=== PATIENT | male | born 1935 | race Caucasian/White ===

== ENCOUNTER 2017-09-16 02:52 | Inpatient (IN) | payer OTHER, BC ==
[2017-09-16] MEDS ORDERED: METOPROLOL TARTRATE 50 MG TAB TUBE ONE (03:13)
[2017-09-16] MEDS ORDERED: NS 500 ML IV ONE (03:22)
--- NOTE | 2017-09-16 03:47 | EDPHY ---
H & P Stated Complaint: AMS, hematuria, CP, SOB Time Seen by Provider: 09/16/17 02:56 HPI/ROS: HPI The patient presents with chest pain and shortness of breath, brought in by ambulance from [facility] where he has been for the last several days after an admission to [facility] for CVA. At [facility], the patient complained of shortness of breath and was noticed to have a fast heart rate. He was transferred here. He now is feeling better and denies shortness of breath or chest pain without any intervention. He has a most form with him stating that he is comfort measures only. On review of his discharge summary from about 1 week ago, he was diagnosed with an left ICA stroke. REVIEW OF SYSTEMS Constitutional: No fever, no chills. Eyes: No discharge. ENT: No sore throat. Cardiovascular: No chest pain, no palpitations. Respiratory: No cough, no shortness of breath. Gastrointestinal: No abdominal pain, no vomiting. Genitourinary: No hematuria. Musculoskeletal: No back pain. Skin: No rashes. Neurological: No headache. PMHx: Recent left ischemic ICA stroke, atrial fibrillation, type 2 diabetes, aortic stenosis, hematuria from Vazquez Soc Hx: Currently residing at [facility] PHYSICAL General Appearance: Alert, no distress Eyes: Pupils equal and round no pallor or injection ENT, Mouth: Mucous membranes moist Respiratory: There are no retractions, lungs are clear to auscultation Cardiovascular: Tachycardic rate, irregular Gastrointestinal: Abdomen is soft and non-tender, no masses, bowel sounds normal, G-tube in place, Vazquez in place draining clear red urine Neurological: A&O, dysphagia is present with garbling of speech, leftward gaze Skin: Warm and dry, no rashes Musculoskeletal: Neck is supple non tender Extremities: symmetrical, full range of motion Psychiatric: Patient is oriented X 3, there is no agitation Source: Patient, Family, EMS, Old records - Personal History Current Tetanus Diphtheria and Acellular Pertussis (TDAP): Unsure - Medical/Surgical History Hx Asthma: No Hx Chronic Respiratory Disease: No Hx Diabetes: No Hx Cardiac Disease: No Hx Renal Disease: No Hx Cirrhosis: No Hx Alcoholism: No Hx HIV/AIDS: No Hx Splenectomy or Spleen Trauma: No Other PMH: CVA, Aphasia, G-tube, Vazquez - Social History Smoking Status: Unknown if ever smoked Constitutional: Initial Vital Signs Temperature (C) 36.8 C 09/16/17 03:02 Heart Rate 150 H 09/16/17 03:02 Respiratory Rate 40 H 09/16/17 03:02 Blood Pressure 142/88 H 09/16/17 03:02 O2 Sat (%) 94 09/16/17 03:02 O2 Delivery Mode Nasal Cannula O2 (L/minute) 2 Allergies/Adverse Reactions: No Known Allergies Allergy (Unverified 09/16/17 02:59) Home Medications: Medication Instructions Recorded Apixaban [Eliquis] 5 mg TUBE BID 09/16/17 Aspirin [Aspirin 81mg (*)] 81 mg TUBE DAILY 09/16/17 Atorvastatin Calcium [Lipitor 40 80 mg TUBE HS 09/16/17 mg (*)] Insulin Glargine [Lantus 100 26 units SC DAILY 09/16/17 UNITS/ML (*)] Metoprolol Tartrate [Lopressor 50 50 mg TUBE BID 09/16/17 mg (*)] Polyethylene Glycol 3350 [Miralax 17 gm TUBE DAILY PRN 09/16/17 17 gm (*)] Sennosides/Docusate Sodium 1 each TUBE DAILY 09/16/17 [Senna-S Tablet] glyBURIDE [Glyburide] 5 mg TUBE DAILY 09/16/17 metFORMIN HCL [Glucophage 1000 mg] 1,000 mg TUBE BID 09/16/17 Medical Decision Making - Diagnostics EKG Interpretation: EKG: Complete interpretation has been separately recorded in the [facility] archive. Summary impression: Atrial fibrillation with RVR, peaked T-waves Imaging Results: Chest x-ray single view shows poor duration, no obvious infiltrate, interpreted by me, radiology interpretation is pending. Differential Diagnosis: 82-year-old male, recent ischemic left ICA stroke with admission to [facility], aortic stenosis, type 2 diabetes, dysphagia, atrial fibrillation, hypertension who presents from [facility] for chest pain and shortness of breath. On arrival, he is tachycardic, vital signs are otherwise unremarkable. He is feeling a bit better since his symptoms began. Twelve lead reveals AFib with RVR. Patient is comfort measures only according to a recently signed MOST at bedside. I have reviewed his recent admission to [facility]. I have discussed the case with his daughter Candace. We talked on the phone and she says that he would not want any treatments that are invasive including CPR. She says he in the family have decided that quality is more important than longevity in regards to his life. We decided to check basic laboratory testing to see if there any reversible causes of the patient's shortness of breath and chest pain. Unfortunately, we found that the patient was in acute renal failure with a potassium of 7.4 and this is likely have the cause of his symptoms. Creatinine and BUN are also elevated. Patient had acute kidney injury while admitted to [facility], however this resolved as an inpatient. No workup was obtained that I can tell. The patient's other daughters came to the emergency department after I explained the severity of his clinical condition. They are not sure how to proceed. We have discussed that the patient's clinical condition could possibly be reversible if we identified a cause for his acute kidney failure could be treated. However this would likely involve invasive testing and uncomfortable treatments. The family has explained that the patient put in his living will that he would like to "live and in dignity". The family had a direct conversation with the patient and the patient expressed that he wanted to try and fight his current condition. He confirmed with this with me on a separate interview. I will order treatment for hyperkalemia. I have discussed the case hospitalist Dr. Kaplan. She will order additional laboratory testing to evaluate his hyperkalemia. I spoke with Dr. Garcia, the on-call physician for Dr. Perez at [facility]. She will try and reach him later in the day and have him contact the family. Critical Care Time: CRITICAL CARE Critical care time spent by me, Dr. Barlow, exclusively with this patient was 60 minutes, exclusive of PA time and exclusive of procedures. The organ system at risk was cardiac, electrolyte and I gave IV fluids, albuterol, calcium, insulin to prevent worsening of the patients condition. I consulted with multiple family members to discuss goals of patient's care. 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 - Data Points Laboratory Results: Laboratory Results 09/16/17 03:58 09/16/17 03:17 Medications Given: Piperacillin/Tazobactam/Dextrose (Zosyn 3.375 Gm (Premix)) 50 mls @ 100 mls/hr IV Q6HRS CATRACHITO PRN Reason: Protocol Stop: 10/16/17 11:59 Last Admin: 09/16/17 18:23 Dose: 50 mls Insulin Human Lispro (Humalog Lispro) 0 unit SC Q6HRS CATRACHITO PRN Reason: Protocol Stop: 03/15/18 11:59 Last Admin: 09/16/17 18:23 Dose: 4 units Discontinued Medications Albuterol (Proventil Neb) 5 ml IH CONT ONE Stop: 09/16/17 05:16 Last Admin: 09/16/17 05:24 Dose: 5 ml Calcium Gluconate (Calcium Gluconate) 2 gm IVP EDNOW ONE Stop: 09/16/17 05:15 Last Admin: 09/16/17 05:24 Dose: 2 gm Diltiazem HCl (Cardizem 25 Mg/5 Ml Vial) 15 mg IVP EDNOW ONE Stop: 09/16/17 08:15 Last Admin: 09/16/17 09:49 Dose: 10 mg Sodium Chloride (Ns) 500 mls @ 1,000 mls/hr IV EDNOW ONE PRN Reason: Protocol Stop: 09/16/17 03:51 Last Admin: 09/16/17 04:09 Dose: 500 mls Sodium Chloride (Ns) 1,000 mls @ 3,000 mls/hr IV ONCE ONE Stop: 09/16/17 05:33 Last Admin: 09/16/17 05:58 Dose: 1,000 mls Sodium Chloride (1/2 Ns) 1,000 mls @ 75 mls/hr IV CONT CATRACHITO Stop: 03/15/18 08:44 Last Admin: 09/16/17 09:43 Dose: 1,000 mls Diltiazem HCl 125 mg/ Dextrose 125 mls @ 0 mls/hr IV CONT CATRACHITO; As Directed PRN Reason: Protocol Stop: 03/15/18 09:29 Last Admin: 09/16/17 10:02 Dose: 125 mls Insulin Human Regular (Humulin R) 15 unit IVP EDNOW ONE Stop: 09/16/17 05:16 Last Admin: 09/16/17 05:24 Dose: 15 units Insulin Human Regular (Humulin R) 15 unit IVP ONCE ONE Stop: 09/16/17 15:16 Last Admin: 09/16/17 15:47 Dose: 15 units Lidocaine (Uroject Lidocaine 2% Jelly) 20 ml UR ONCE ONE Stop: 09/16/17 08:24 Last Admin: 09/16/17 08:24 Dose: 20 ml Metoprolol Tartrate (Lopressor) 50 mg TUBE EDNOW ONE Stop: 09/16/17 03:14 Last Admin: 09/16/17 03:15 Dose: 50 mg Pantoprazole Sodium (Protonix) 40 mg IVP DAILY CATRACHITO Stop: 03/15/18 09:14 Last Admin: 09/16/17 10:07 Dose: 40 mg Sodium Bicarbonate (Sodium Bicarbonate) 50 meq IV ONCE ONE Stop: 09/16/17 15:31 Last Admin: 09/16/17 15:48 Dose: 50 meq Sodium Polystyrene Sulfonate (Kayexalate) 30 gm PO ONCE ONE Stop: 09/16/17 13:04 Last Admin: 09/16/17 17:33 Dose: 30 gm Departure - Departure Dis[facility] Acute Clinical Impression: Hyperkalemia, Leukocytosis, Atrial fibrillation Chest pain Qualifiers: Chest pain type: other chest pain Qualified Code(s): R07.89 - Other chest pain Acute renal failure Qualifiers: Acute renal failure type: unspecified Qualified Code(s): N17.9 - Acute kidney failure, unspecified CVA (cerebral vascular accident) Qualifiers: CVA mechanism: unspecified Qualified Code(s): I63.9 - Cerebral infarction, unspecified Condition: Critical
[2017-09-16 04:07] LABS: PLATELET COUNT 432 10^3/uL (150-400)
[2017-09-16] MEDS ORDERED: ONDANSETRON 4 MG/2 ML VIAL IVP PRN (05:14)
[2017-09-16] MEDS ORDERED: ACETAMINOPHEN 325 MG TAB PO PRN (05:14)
[2017-09-16] MEDS ORDERED: NS 1,000 ML IV ONE (05:14)
[2017-09-16] MEDS ORDERED: CALCIUM GLUC 10% 1 GM/10 ML VIAL IVP ONE (05:14)
[2017-09-16] MEDS ORDERED: INSULIN REGULAR HUMAN 100 UNIT/ML IVP ONE ×3 (05:15→15:15)
[2017-09-16] MEDS ORDERED: ALBUTEROL 3 ML DEYVIAL IH ONE (05:15)
--- NOTE | 2017-09-16 05:28 | CPEKG ---
Heart Rate: 131 RR Interval: 458 P-R Interval: 196 QRSD Interval: 88 QT Interval: 336 QTC Interval: 496 P [place]: 0 QRS [place]: -70 T Wave [place]: 85 EKG Severity - ABNORMAL ECG - EKG Impression: SINUS TACHYCARDIA WITH IRREGULAR RATE 91-143 EKG Impression: LEFT ANTERIOR FASCICULAR BLOCK EKG Impression: BORDERLINE PROLONGED QT INTERVAL Electronically Signed By: Loree Barlow 16-Sep-2017 07:28:12
[2017-09-16] MEDS ORDERED: LIDOCAINE 2% JELLY 20 ML (UROJECT) ONE (07:45)
[2017-09-16] MEDS ORDERED: DILTIAZEM 125 MG in D5W 125 ML IV ONE (08:14)
[2017-09-16] MEDS ORDERED: DILTIAZEM 25 MG/5 ML VIAL IVP ONE (08:14)
[2017-09-16] MEDS ORDERED: LIDOCAINE 2% JELLY 20 ML (UROJECT) UR ONE (08:23)
[2017-09-16] MEDS ORDERED: D50W 25 GM/50 ML SYR IVP PRN (08:35)
[2017-09-16] MEDS ORDERED: 1/2 NS 1,000 ML IV SCH (08:45)
[2017-09-16] MEDS ORDERED: PANTOPRAZOLE SODIUM 40 MG VIAL IVP SCH (09:15)
[2017-09-16] MEDS ORDERED: DILTIAZEM 125 MG in D5W 125 ML IV SCH (09:30)
--- NOTE | 2017-09-16 10:37 | GHP ---
[f rep st] HISTORY AND PHYSICAL DATE OF ADMISSION: 09/16/2017 PRIMARY CARE PHYSICIAN: Dr. Oc Downs at [facility]. SOURCE: Patient with significant aphasia. He is able to answer a few yes/no questions as far as rev iew of systems. His 3 daughters and son-in-law are all at bedside and provide the majority of the hi story. Case was discussed with ED provider and available EMR was reviewed. CHIEF COMPLAINT: Chest pain and shortness of breath. HISTORY OF PRESENT ILLNESS: A very pleasant, 82-year-old gentleman with unfortunate recent left ICA stroke and right-sided hemiparesis, dysphagia, aphasia who was recently discharged from [facility] in [place] and transferred to [facility]. The patient with a known past medical history si gnificant for atrial fibrillation, on anticoagulation with Eliquis, hypertension, diabetes, uncontrol led aortic stenosis. Family notes of high severity they believe. He was previously quite active bef ore his stroke and appeared to be doing well at [facility] until early this morning when he developed chest pain and shortness of breath. This patient, at the time of my interview, was reporting interm ittent chest pain. He was also pointing to his abdomen that he was uncomfortable but denied any pain . Daughters report that he has been scratching at his PEG site intermittently. He has no reported f ehsan. The patient denies any subjective fevers or chills. No diarrhea. The patient does have a co ugh but is nonproductive. No nasal discharge or sore throat. The patient has a chronic indwelling F oley and that was noted to have hematuria and now frankly bloody. The patient arrived to the emergency department and initial evaluation, discussion with the family, r evealed that patient was more of comfort measures in mind initially. Family, however, wanted to have further evaluation and see what exactly was ongoing in patient's acute changes. A CBC and BMP were significant for leukocytosis and significantly elevated potassium of 7.4 with acute renal insufficien cy. The family desired to have more information regarding what was causing the patient's acute renal failure. However, we are uncertain as to how to proceed as far as treatment. After the patient's 3 daughters arrived and had adequate time for discussion, several hours after patient arrived, they ul timately decided to proceed with treatment. They had a chance to speak with an additional family mem bj who is an RN and again reconsidered how best to proceed with patient's immediate care and goals o f comfort and dying with dignity. Ultimately, daughters elected to proceed with conservative treatme nt, noting adamantly against any kind of invasive procedures and/or aggressive resuscitation. This p recludes any sort of cardiac cath given patient's chest pain. No CPR, no intubation, no minor proced ures. The family did request that repeat laboratory studies be completed following the initial treat ment for patient's hyperkalemia and, again, had further discussions regarding plan to continue treatm ent of patient's additional medical issues. They were finally amenable to go ahead and treat conserv atively all systems and ongoing issues with plans to further discuss with palliative care and follow up on repeat lab testing. REVIEW OF SYSTEMS: GENERAL: Patient denies any fevers chills. SKIN: The patient does have a small wound on his coccyx. No other rashes or sores. ENT: No sore throat. No rhinorrhea. EYES: Unable to understand patient's response. CV: Patient does report intermittent chest pain, shortness of br eath is improved. GI: No nausea or vomiting. The patient does complain of discomfort, but no pain in his abdomen. Some distention. RESPIRATORY: Positive for nonproductive cough and shortness of br eath that has improved. : Positive for hematuria and bleeding around the Vazquez catheter. Also, f rank hematuria in the catheter with occlusion and bladder discomfort. MUSCULOSKELETAL: Patient with right hemiparesis. Unlimited strength in the left side. NEURO: As above. The patient also with p ersistent dysphagia. ALLERGIES: No known drug allergies. HOME MEDICATIONS: As available in EMR. Tubersol, senna, MiraLAX, metoprolol, metformin, Lipitor, La ntus, glyburide, aspirin, apixaban. PAST MEDICAL HISTORY: Significant for recent left ICA CVA with right hemiparesis, aphasia, dysphagia status post PEG tube, and aortic stenosis. Family under the impression that it is of moderate to se karma. Diabetes type 2, hypertension, atrial fibrillation, on chronic anticoagulation with Eliquis an d hematuria. PAST SURGICAL HISTORY: Significant for PEG tube, otherwise negative. FAMILY HISTORY: Mother with history of CVA. 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 He is currently a resident of [facility]. No history of tobacco, drugs, or alcohol. His 3 daughters at [facility] provide great support who are all medical power of employment attorney. CODE STATUS: DNR/DNI. PHYSICAL EXAMINATION: VITAL SIGNS: Upon arrival to the emergency department, blood pressure 142/88, heart rate 150, respiratory rate 40, O2 saturation 94% on 2 L by nasal cannula with a temperature 36 .8. Vitals at the time of interview: Blood pressure 95/58, heart rate 144, respiratory rate 40, O2 saturation 96% on 3 L by nasal cannula with a temperature of 38 degree Celsius. GENERAL: No acute d istress. Chronically ill-appearing, elderly, frail gentleman, lying in bed. He is in a collar. Reena ghters are all at bedside. Patient does appear slightly pale. He does wake to name and is able to s ay a few words, primarily yes, no, otherwise very difficult to understand secondary to aphasia. SKIN : Patient with an ulceration at the coccyx; otherwise, no other apparent rashes or sores. ENT: Muc ous membranes are quite dry. Poor dentition. EYES: Limited exam. There is some crusting on the le ft eye and patient resists me opening either eye. There is no scleral icterus or conjunctival inject ion. Cannot assess patient's pupils secondary to resistance from the patient. NECK: Supple, trache a midline. CV: Distant heart sounds. Tachycardic. Limited exam. Unable to appreciate any murmurs , rubs, or gallops. Distant heart sounds. RESPIRATORY: Diminished bibasilarly. No rhonchi or whee zing. ABDOMEN: Distended. The patient's bladder is significantly enlarged. He does not have any g uarding. No apparent discomfort with exam. He has a PEG tube in place without any surrounding eryth britton at the PEG site. : Vazquez catheter is in place with leaking around the Vazquez catheter with blo od. The catheter itself is occluded with some clotted pal blood. Patient without any scrotal margarito a. EXTREMITIES: Right-sided hemiparesis. NEUROLOGIC: Left side strength 4/5, but patient is not ab le to follow any commands at time of my exam. The patient is oriented to self, but has an aphasia an d does try to answer questions, but difficult to interpret. PSYCH: The patient is not agitated. He does attempt to answer questions at appropriate times. Answers are not always intelligible. Patien t is able to consistently answer most yes or no questions. LABORATORY STUDIES: Initial BMP shows sodium 136, potassium 7.4, chloride 98, CO2 25, anion gap 13, BUN 86, creatinine is 1.7, GFR of 39, glucose 466, calcium 9.8. Troponin is 1.60. Repeated BMP show s sodium 141, potassium is 5.8, chloride 105, CO2 21, anion gap 15, BUN 18, creatinine is 1.9, GFR 34 , glucose 370. Calcium is 10.1. VBG: The pH is 7.41, pCO2 is 34, PO2 is 120, bicarb 21, O2 saturat ion 98, base excess is -2.3. CBC shows WBCs of 21.5 thousand, hemoglobin and hematocrit 14.2 and 41. 3, MCV 86.9, platelet count 432, neutrophil percent 89.7, percent granulocytes 0.7%. EKG shows atrial fibrillation, RVR. Chest x-ray: Image reviewed myself prior to report being available. Appears to have multiple areas of patchiness on the right. Evaluation limited, was single-view and rotated image. ASSESSMENT AND PLAN: An 82-year-old gentleman with multiple medical issues including recent left int ernal carotid artery (ICA) stroke with right hemiparesis, aortic stenosis, uncontrolled diabetes type 2, atrial fibrillation, uncontrolled hypertension, who presents with complaints of chest pain, short ness of breath. 1. Hyperkalemia. Initially critical at 7.4. After some time of discussion family elected to procee d with conservative management and treatment for his multiple medical issues. Repeat basic metabolic panel does show that potassium has declined down to 5.8, status post insulin, IV fluids and patient did receive calcium gluconate. Will plan to repeat basic metabolic panel. Continue with IV fluid hy dration. 2. Acute kidney injury. Baseline creatinine unavailable at this time. Repeated creatinine up sligh tly to 1.9. Suspect there is a decreased perfusion in the setting of persistent atrial fibrillation with rapid ventricular response and likely prerenal in nature. Patient did receive some IV fluids an d repeat basic metabolic panel showed slight worsening of renal function but the patient's atrial fib rillation had remained untreated. Urine studies have been obtained. The patient also with evidence of a bladder outlet obstruction at this time, which could be contributing in addition. Attempts are being made currently for the patient to have a 3-way catheter or replacement of Vazquez catheter and dr chadwick of the bladder if possible. 3. Atrial fibrillation with rapid ventricular response. The patient did receive a dose of metoprolo l per PEG earlier in the emergency department, consistent with conservative management. Did discuss with the family aggressive rate control to improve the other issues ongoing that atrial fibrillation could be contributing to including his acute renal failure and subsequently hyperkalemia. They are a menable to proceed at this point with IV treatment. We will start with a bolus of Cardizem, followed by a drip. 4. Elevated troponin. Suspect this is likely demand in the setting of atrial fibrillation with rapi d ventricular response. The patient does have some complaints of chest pain. It is unclear what gideon luation cardiac-thakkar patient has had previously. He was otherwise a healthy rancher without any repo rt of angina. Further discussion as far as evaluation discussed with the family and they are adamant that they would not want any sort of intervention, including cardiac cath, and so there is no need f or cardiology consultation at this point unless family changes their decision on intervention. We wi ll continue to trend troponins and monitor on telemetry. 5. Pal hematuria. Patient does have a history of some hematuria, but currently he has a significa nt amount of gross pal hematuria noted in his catheter that is now occluded and subsequent drainage around his Vazquez catheter. The patient is on Eliquis, which we will hold at this time. If possible , we will have nursing staff place a 3-way catheter and place patient on continuous irrigation. Agai n, as patient does not desire any further intervention we will hold off on urology consultation for n ow. 6. Diabetes type 2, uncontrolled. The patient will be placed on the low-dose insulin sliding scale. He did receive a bolus dosing for treatment of his hyperkalemia. We will plan to hold off on tube feeds pending re-evaluation by the day team for now. Will place patient on q.6 hour Accu-Cheks and h ypoglycemia protocol. 7. History of aortic stenosis, severity unknown, but impression of the family is quite moderate to s willard. We will try to get records from [facility] from his recent hospital stay including e chocardiogram. We will monitor fluid status closely. 8. Benign essential hypertension. Blood pressures at this time are adequate. We will monitor close ly with the initiation of Cardizem drip. 9. Dysphagia. Patient with a PEG tube in place. 10. Possible infiltrates on chest x-ray with increased risk for aspiration. The patient also has a white count, possibly intraabdominal versus respiratory. The patient does report a cough. Will star t patient on Zosyn, given recent hospitalization for healthcare acquired coverage. 11. Prolonged QT. We will monitor the patient on telemetry and reassess after patient's rate has be en controlled. 12. Fluid, electrolyte, nutrition. Patient will receive half-normal saline at 75. He is status pos t 1.5 L IV fluid in the emergency department. Electrolytes will be monitored, replaced if needed or treated for hyperkalemia as above. Nothing by mouth. Patient will hold off on tube feeds for now. 13. Decubitus ulcer present on admission. Wound Care will be consulted. Ulceration located at the coccyx, sacrum. Will see if possible order specialty bed. 14. Prophylaxis. Holding Eliquis. Patient with active bleeding. Hemoglobin and hematocrit are sta ble. Patient with history of dysphagia, does not have a gastrointestinal prophylaxis on his home med ication list. Will order Protonix IV for now. Aspiration precautions. Fall precautions. CODE STATUS: Do Not Resuscitate, Do Not Intubate with limited treatment to include only medical, no interventions. DISPOSITION: The patient will be admitted to inpatient status. At this time family is desiring to nicola mccurdy with full medical treatment for his multiple medical issues and I did discuss this with the lyle reich that given his multiple medical issues, his chronic illnesses, that this is likely to be a very slow recovery, if at all. Palliative Care has been consulted to assist with further discussions with the family. They would like at least 24 hours of treatment before reassessment of plans of care. /[id number]/MODL
[2017-09-16] MEDS: PIPERACILLIN/TAZO 3.375 GM/DEX 50 ML IV SCH ×2 (11:44→18:23)
[2017-09-16] MEDS: INSULIN LISPRO 100 UNIT/ML SC SCH ×2 (11:52→18:23)
[2017-09-16] MEDS ORDERED: POLYETHYLENE GLYCOL 3350 17 GM PKT TUBE PRN (12:08)
[2017-09-16] MEDS ORDERED: SODIUM BICARBONATE 50 MEQ/50 ML SYR IVP ONE ×2 (13:02→15:15)
[2017-09-16] MEDS ORDERED: SODIUM POLY SULF 15 GM/60 ML BOTTLE PO ONE (13:03)
--- NOTE | 2017-09-16 14:17 | PDPCPN ---
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 On admission with KATERINE and hyperkalemia. ALso tachycardic on admission with a rib RVR started on cardizem. Hyperkalemia improved since admission with medical management. Ongoing work up for cause of KATERINE. Also with hematuria on CBI. MOST form on admission with comfort care only. Palliative care consulted for complex medical decision making. Met with 3 daughters and granddaughter at the bedside this afternoon. Cristian was sleeping, but per family was awake and alert a little while before the meeting. Per family Cristian was very active and engaged prior to his stroke. They always thought he wanted to "go out like his father" who had a heart attack but after his stroke he seemed to acknowledge and accept that he would have continued physical limitations. They have started planning for more long term care phlebotomist plans including [facility] after rehab. They are hoping his quality of life can improve to using a wheelchair and not being dependent on PEG tube for nutrition. At current baseline, it is not consistent with a good quality of life. Discussed the medical interventions being managed medically for now. They reiterated they would not want invasive medical management like surgery, invasive tests, or CPR. They are unsure how to proceed as they worry that Cristian will not improve in functional status and would just be prolonging a poor quality of life. They are unsure how the MOST form was filled out with comfort as their wishes have always been for some medical interventions as long as a good return to quality of life was the driven force for decisions. Assessment: Physical: - Pain: appears comfortable -tylenol PRN - Dysphagia: - speech therapy - aspiration precautions - weakness: - Pt/Ot as able Emotional/psychological: acute encephalopathy - maintain normal routines Advanced Care Planning: Is patient decisional?: no not at this time Code Status: DNR/DNI- selective MD POA: 3 daughters are MDPOA. Plan: Continue simple medical interventions. No invasive tests or procedures. Family is hopeful Cristian can return to rehab and improve to living in [place]. They would not want life prolongation without quality of life. Subjective: sleeping, mumbles words to name Objective: Social History: 2 months ago. 4 daughters, 3 alive and local. 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 Enjoys working on his garden and riding horses. Medication list reviewed ROS: General: fatigue, weakness, weight loss ENT: dysphagia Resp: negative GI: poor appetite : hematuria MS: negative Skin: sacral ulcer Neuro: right sided weakness Psych: confusion Functional assessment: PPS: 30% Functional status: dependent on ADLs, IADLs Vital Signs Temp Pulse Resp BP Pulse Ox 37.2 C 92 30 H 124/73 H 95 09/16/17 12:00 09/16/17 13:57 09/16/17 13:57 09/16/17 13:57 09/16/17 13:57 Laboratory Results 09/16/17 11:30 09/15/17 09/16/17 09/17/17 05:59 05:59 05:59 Output Total 450 Balance -450 Physical Exam - Physical Exam General Appearance: no apparent distress, other (sleeping, slightly arousable to voice) Respiratory: No respiratory distress, No accessory muscle use Male Genitalia: other (red blood in kaufman bag) Skin: normal color, warm/dry Extremities: No pedal edema Neuro/Psych: other (awakens to name, some confusion) ICD10 Worksheet Patient Problems: Problems Problem Status Onset Acute renal failure Acute CVA (cerebral vascular accident) Acute Chest pain Acute Hyperkalemia Acute Palliative care encounter Acute - ICD10 Problem Qualifiers (1) Palliative care encounter
--- NOTE | 2017-09-16 14:17 | ASMTCMCOM ---
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 Pt had a stroke approximately 3 weeks ago and was treated at [facility]. Pt d/c to [facility] rehab and was admitted to [facility] from his [facility] rehab stay. Please see palliative note for details on consult. Faxed referrals and updates to [facility]. Case Management d/c poc: return to [facility] pending reacceptance. Case Management to follow. Date Signed: 09/16/2017 02:17 PM Electronically Signed By:Rachele Jennings RN
[2017-09-16] MEDS ORDERED: NA BICARBONATE 50 MEQ/50 ML VIAL IV ONE (15:30)
--- NOTE | 2017-09-16 16:10 | WOCRNPDOC ---
WOCRN Advanced Assessment Note - Skin Integrity Problem, Advanced Assess Coccyx Dressing Type: Allevyn Life Dressing Description: Clean/Dry, Intact Integumentary Issue Intervention: Dressing Removed Belle Wound Tissue: Blanching, Erythema, Non-blanching Wound Bed Constitution: Granulation Tissue Wound Edges: Attached Site Measurement - Head-to-Toe Length X Width X Depth (cm): 3x0.8x0.1 Pressure Injury Stage: Stage 3 Pressure Injury Present on Admit: Yes Skin Integrity Problem Comment: Two wounds seperated by a small bridge of skin along gluteal cleft. Both full thickness. Belle wound skin with erythema and satellite lesions. Removed dressing and will treat with antifungal barrier cream for a few days to see if there is improvement. Minimize layers. No briefs. P500 mattress. Wound care will round again thursday.
--- NOTE | 2017-09-16 16:31 | ECHO ---
[email or web address] [address] [address] Main: [phone] Fax: Transthoracic Echocardiogram Name: SARAH MOORE MR#: [id number] Study Date: 09/16/2017 Study Time: 01:58 PM Date of : 1935 Age: 82 year(s) Height: 182.9 cm (72 in.) Weight: 80.74 kg (178 lb.) BSA: 2.03 m2 Gender: Male Examination: Echo Indication: Aortic stenosis Image Quality: Contrast: Requested by: Alycia Mcneill BP: 124 mmHg/73 mmHg Heart Rate: Rhythm: Indication: Aortic stenosis Procedure Staff Signal Integrity Engineer: Claudia Terrazas Reading Physician: Clifford Skaggs Requesting Provider: Conclusions: Normal size left ventricle. Mild to moderate LVH. The ejection fraction is estimated to be 70-75 %. Mild mitral valve regurgitation is present. Severe calcification of the posterior mitral leaflet.. Moderate aortic cusp calcification is present. Mild aortic valve regurgitation is present. Moderate calcific aortic valve stenosis. AV max PG is 47mmHG. AV mean PG is 26mmHG.. No old studies for comparison. Measurements: Chambers Valvular Assessment AV/MV Valvular Assessment TV/PV Normal Normal Normal Name Value Range Name Value Range Name Value Range Ao Vicki (MM): 3.3 cm (2.2 cm-3.7 AV meanP mmHg ( - ) cm) TAIWO (VTI): 1.4 cm ( - ) IVSd (2D): 1.1 cm (0.6 cm-1.1 AR (PHT): 447 ms ( - ) cm) MV E Vmax: 1.15 m/s ( - ) LVDd (2D): 3.8 cm (4.2 cm-5.9 MV A Vmax: 0.90 m/s ( - ) cm) MV E/A: 1.28 ( - ) LVDs (2D): 2.4 cm (2.1 cm-4 cm) LVPWd (2D): 1.1 cm (0.6 cm-1 cm) LVOTd 2.1 cm 2.1 cm mm LVEF (2D): 68 (>=54 %) EF Range: 70-75 % Continued Measurements: Patient: SARAH MOORE Study Date: 09/16/2017 Page 1 of 2 01:58 PM Chambers Valvular Assessment AV/MV Name Value Name Value LADs: 3.2 cm MV DecTime: 426 m/s LADs Lon.4 cm MV E' Septal: 0.07 m/s LA Area: 22.6 cm2 MV E/E' Septal: 17.30 MV E/E' Lateral: 15.30 AR Vmax: 3.74 cm/s Findings: Left Ventricle: Normal size left ventricle. Mild to moderate LVH. Global hypercontractility of the left ventricle. The ejection fraction is estimated to be 70-75 %. No regional wall motion abnormality. Normal diastolic LV function. Right Ventricle: Normal size right ventricle. Left Atrium: The left atrium is normal in size. Right Atrium: The right atrium is normal in size. Mitral Valve: Mild mitral valve regurgitation is present. Severe calcification of the posterior mitral leaflet.. Aortic Valve: Moderate aortic cusp calcification is present. Mild aortic valve regurgitation is present. Moderate calcific aortic valve stenosis. AV max PG is 47mmHG. AV mean PG is 26mmHG.. Tricuspid Valve: The tricuspid valve is normal in appearance and function. Pulmonic Valve: Pulmonary valve not well visualized. Aorta: The aorta is normal. Pericardium: No pericardial effusion. (No Signature Object) Patient: SARAH MOORE Study Date: 09/16/2017 Page 2 of 2 01:58 PM [id number]
--- NOTE | 2017-09-16 17:18 | PDMN ---
Medical Necessity Medical necessity: est los>2mn for hyperkalemia, KATERINE, AFIB W/RVR, elevated troponin, pal hematuria, prolonged QT, uncontrolled DM, leukocytosis, respiratory vs abdominal source; admit for full medical treatment , including IV abx, tele, IVF, and palliative consult, then reassess plan of care; hx recent CVA w/R hemiparesis, aphasia, dysphagia w/PEG; per order and H&P 09/16/17
--- NOTE | 2017-09-16 18:24 | GCON ---
[f rep st] CONSULTATION DATE OF CONSULTATION: 09/16/2017 REFERRING PHYSICIAN: Jane Kaplan MD REASON FOR CONSULTATION: I have been asked to see this gentleman because of hematuria. 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 He was discharged from [facility] in [place] and transferred to [facility]. He had been on Eliquis. A catheter was place d because of urinary retention. He was admitted for problems associated with the stroke and anticoag ulation. He has had a catheter placed and he has been on CBI for gross hematuria. They have stopped his Eliqu is. I visit with him today after reviewing his record and chart. ALLERGIES: By history, he has no known drug allergies. MEDICATIONS: As noted in the EMR. PAST MEDICAL HISTORY: Recent cerebrovascular accident, type 2 diabetes, hypertension, atrial fibrill ation, chronic anticoagulation with Eliquis, and hematuria. PAST SURGICAL HISTORY: Has been a PEG tube. FAMILY HISTORY: Mother with a cerebrovascular accident. 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 Nonsmoker, nondrinker. PHYSICAL EXAMINATION: GENERAL: On exam, the patient is lying in bed, having an IV placed. Catheter is draining and there is no significant blood in the catheter. He is appears to be in no acute dist ress as far as pain or discomfort. EXTREMITIES: He does have lower peripheral extremity edema. HEA D: Covered with a cloth to protect him from light, presumably. NEUROPSYCHIATRIC: Communication has been purely with his family. GENITOURINARY: At the present time, he has had the CBI running and th ey have evacuated clots. IMAGING: They did do an ultrasound of his bladder today, and the bladder revealed that he had the ca theter balloon in place and he had multiple rectally small to moderate-sized clots in the bladder. T he bladder was emptying well and draining quite easily. On the ultrasound, it appeared that he also had some mild hydronephrosis, right greater than left, that could be from chronic long-term obstructi on. There were no stones or tumors noted in the kidneys or ureters. ASSESSMENT AND PLAN: At the present time, my impression is this patient is a high-risk patient for a ny interventional procedures. I would recommend Vazquez catheter continuation. He will need to resume his Eliquis, and I have outlin ed to the family that he could quite easily have recurrent bleeding. If necessary, he may need at so me point to undergo general anesthesia for evacuation of clots, but at the present time and in his pr esent condition, would avoid that. I have tried to answer their questions to the best of my ability. I will follow him on the periphery . I was asked to see this patient by Dr. Kaplan. Review of the x-rays and time spent at bedside and review of the medical records was approximately 40 minutes in duration total. /[id number]/MODL
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
[2017-09-16] MEDS: NS 1,000 ML IV SCH (23:58)
[2017-09-17] MEDS: PIPERACILLIN/TAZO 3.375 GM/DEX 50 ML IV SCH ×4 (00:15→18:16)
[2017-09-17] MEDS: METOPROLOL TARTRATE 50 MG TAB TUBE SCH ×3 (01:53→20:36)
[2017-09-17] MEDS: ATORVASTATIN CALCIUM 40 MG TAB TUBE SCH ×2 (01:53→20:35)
[2017-09-17] MEDS: INSULIN LISPRO 100 UNIT/ML SC SCH ×4 (02:36→18:16)
[2017-09-17 04:35] LABS: PLATELET COUNT 329 10^3/uL (150-400)
[2017-09-17] MEDS ORDERED: SENNOSIDES/DOCUSATE SODIUM TAB PO SCH (09:00)
[2017-09-17] MEDS ORDERED: TAMSULOSIN HCL 0.4 MG CAP PO SCH (09:00)
[2017-09-17] MEDS: SENNOSIDES 17.6 MG/10 ML UDL TUBE SCH (09:02)
[2017-09-17] MEDS: ASPIRIN 81 MG CHEWABLE TAB TUBE SCH (09:20)
[2017-09-17] MEDS: NS 1,000 ML IV SCH (09:20)
[2017-09-17] MEDS: ACETAMINOPHEN 650 MG/20.3 ML UDCUP TUBE PRN ×2 (09:21→20:35)
[2017-09-17] MEDS: glyBURIDE 5 MG TAB TUBE SCH (09:21)
[2017-09-17] MEDS: INSULIN GLARGINE 100 UNITS/ML SYRINGE SC SCH (11:31)
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
[2017-09-18] MEDS: PIPERACILLIN/TAZO 3.375 GM/DEX 50 ML IV SCH ×3 (01:43→11:59)
[2017-09-18] MEDS: INSULIN LISPRO 100 UNIT/ML SC SCH ×4 (02:48→17:57)
[2017-09-18 04:43] LABS: PLATELET COUNT 292 10^3/uL (150-400)
[2017-09-18] MEDS: ACETAMINOPHEN 650 MG/20.3 ML UDCUP TUBE PRN ×2 (08:21→20:56)
[2017-09-18] MEDS: METOPROLOL TARTRATE 50 MG TAB TUBE SCH ×2 (08:24→20:56)
[2017-09-18] MEDS: ASPIRIN 81 MG CHEWABLE TAB TUBE SCH (08:27)
[2017-09-18] MEDS: glyBURIDE 5 MG TAB TUBE SCH (08:29)
[2017-09-18] MEDS: INSULIN GLARGINE 100 UNITS/ML SYRINGE SC SCH (08:32)
[2017-09-18] MEDS: SENNOSIDES 17.6 MG/10 ML UDL TUBE SCH (09:26)
--- NOTE | 2017-09-18 10:34 | WOCRNPDOC ---
WOCRN Advanced Assessment Note - Skin Integrity Problem, Advanced Assess Coccyx Dressing Type: Open to Air Exudate Amount: None Exudate Characteristic(s): None Integumentary Issue Intervention: Barrier Cream Applied (Calazime cream) Belle Wound Tissue: Blanching, Erythema, Denuded Belle Wound Swelling: Mild Wound Bed Color: Red Wound Bed Constitution: Red/Pamplico - Non Granular Tissue Pressure Injury Stage: Stage 3 Skin Integrity Problem Comment: Two, discrete full-thickness pressure injuries noted directly over coccyx, by a narrow patch of skin. Belle-wound skin blanching, but continues to be raw and denuded r/t frequent loose stools. Order changed to Calazime to provide a thicker barrier against stool. Patient repositioned on his R side. director of retail merchandising Kelli larose. Occiput Pressure Injury Dressing Type: Open to Air Exudate Amount: Scant Exudate Color: Reddish/Yellow Exudate Characteristic(s): Serosanguinous Integumentary Issue Intervention: Dressing Applied Belle Wound Tissue: Intact Belle Wound Swelling: None Wound Bed Color: Brown Wound Bed Constitution: Scab Site Measurement - Head-to-Toe Length X Width X Depth (cm): 0.5cmx0.5cmx scab Pressure Injury Stage: Unstageable Pressure Injury Present on Admit: No Skin Integrity Problem Comment: Small, circular scab noted to patient's occiput , directly under his neck brace. Unable to ascertain depth at this time, so it is presently an unstageable pressure injury. Belle-wound skin is intact and blanching. Protective foam dressing applied to help alleviate pressure, and neck brace re-fastened. Wound care will continue to monitor, rounding again on Friday 09/22.
[2017-09-18] MEDS ORDERED: LOPERAMIDE HCL 1 MG/5 ML UDL TUBE PRN (15:00)
[2017-09-18] MEDS ORDERED: LOPERAMIDE HCL 1 MG/5 ML UDL TUBE ONE (15:00)
--- NOTE | 2017-09-18 15:34 | PDPCPN ---
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 On admission with KATERINE and hyperkalemia. ALso tachycardic on admission with a rib RVR started on cardizem. Hyperkalemia improved since admission with medical management. Ongoing work up for cause of KATERINE. Also with hematuria on CBI. MOST form on admission with comfort care only. Palliative care consulted for complex medical decision making. Cristian seen today with friends and 1 daughter at the bedside. More awake and alert today attempting communication. Is able to say some things and denies any pain. He states he wants to get back to rehab to work on his speech and mobility. Assessment: Physical: - Pain: appears comfortable -tylenol PRN - Dysphagia: - speech therapy - aspiration precautions - weakness: - Pt/Ot as able Emotional/psychological: acute encephalopathy - maintain normal routines Advanced Care Planning: Is patient decisional?: yes with help Code Status: DNR/DNI- selective MD POA: 3 daughters are MDPOA. Plan: Return to rehab when medically stable. Subjective: no pain Objective: Vital Signs Temp Pulse Resp BP Pulse Ox 36.7 C 85 12 109/60 99 09/18/17 15:15 09/18/17 15:15 09/18/17 15:15 09/18/17 15:15 09/18/17 15:15 Laboratory Results 09/18/17 03:09 09/18/17 03:09 09/17/17 09/18/17 09/19/17 05:59 05:59 05:59 Intake Total 1200 3476 50 Output Total 3300 1390 Balance -2100 2086 50 Physical Exam - Physical Exam General Appearance: alert, no apparent distress Respiratory: No respiratory distress, No accessory muscle use Skin: normal color, warm/dry Extremities: No pedal edema Neuro/Psych: alert, other (some aphasia) ICD10 Worksheet Patient Problems: Problems Problem Status Onset Acute renal failure Acute Atrial fibrillation Acute CVA (cerebral vascular accident) Acute Chest pain Acute Hyperkalemia Acute Leukocytosis Acute Palliative care encounter Acute - ICD10 Problem Qualifiers (1) Palliative care encounter
[2017-09-18] MEDS: ERTAPENEM 1 GM VIAL IVP SCH (17:43)
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
[2017-09-18] MEDS: ATORVASTATIN CALCIUM 40 MG TAB TUBE SCH (20:55)
[2017-09-19] MEDS: INSULIN LISPRO 100 UNIT/ML SC SCH ×4 (01:11→18:51)
[2017-09-19 04:11] LABS: PLATELET COUNT 291 10^3/uL (150-400)
[2017-09-19] MEDS ORDERED: D5W 1,000 ML IV SCH (08:45)
[2017-09-19] MEDS: METOPROLOL TARTRATE 50 MG TAB TUBE SCH ×2 (08:54→20:39)
[2017-09-19] MEDS: ASPIRIN 81 MG CHEWABLE TAB TUBE SCH (08:54)
[2017-09-19] MEDS: SENNOSIDES 17.6 MG/10 ML UDL TUBE SCH (08:55)
[2017-09-19] MEDS: glyBURIDE 5 MG TAB TUBE SCH (08:55)
[2017-09-19] MEDS: INSULIN GLARGINE 100 UNITS/ML SYRINGE SC SCH (09:31)
--- NOTE | 2017-09-19 15:31 | ASMTCMCOM ---
CM Note CM Note Notes: Reviewed chart regarding discharge plan, pt's progress. Per MD notes, pt's anticipated discharge is uncertain at this time. Per MD and Palliative Care progress notes, pt will liklel return to [facility] for rehab when stable. CM will cont to follow. Current Discharge Plan: [facility] Date Signed: 09/19/2017 03:30 PM Electronically Signed By:Joana Cain RN
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
[2017-09-19] MEDS: ERTAPENEM 1 GM VIAL IVP SCH (18:11)
[2017-09-19] MEDS: APIXABAN 5 MG TAB TUBE SCH (20:35)
[2017-09-19] MEDS: ATORVASTATIN CALCIUM 40 MG TAB TUBE SCH (20:36)
[2017-09-20] MEDS: INSULIN LISPRO 100 UNIT/ML SC SCH ×4 (00:23→18:18)
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
[2017-09-20 04:20] LABS: PLATELET COUNT 266 10^3/uL (150-400)
[2017-09-20] MEDS: SENNOSIDES 17.6 MG/10 ML UDL TUBE SCH (08:50)
[2017-09-20] MEDS: glyBURIDE 5 MG TAB TUBE SCH (08:50)
[2017-09-20] MEDS: INSULIN GLARGINE 100 UNITS/ML SYRINGE SC SCH (08:50)
[2017-09-20] MEDS: ASPIRIN 81 MG CHEWABLE TAB TUBE SCH (08:50)
[2017-09-20] MEDS: METOPROLOL TARTRATE 50 MG TAB TUBE SCH ×2 (08:50→20:27)
[2017-09-20] MEDS: APIXABAN 5 MG TAB TUBE SCH ×2 (08:50→20:30)
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
[2017-09-20] MEDS: ATORVASTATIN CALCIUM 40 MG TAB TUBE SCH (20:30)
[2017-09-21] MEDS: INSULIN LISPRO 100 UNIT/ML SC SCH ×4 (00:13→19:24)
[2017-09-21 04:31] LABS: PLATELET COUNT 266 10^3/uL (150-400)
--- NOTE | 2017-09-21 09:18 | ASMTCMCOM ---
CM Note CM Note Notes: 09/21/2017 Case Management Note Faxed updates to [facility].] Case Management d/c poc: return to [facility] when medically stable. Case Management to follow. Date Signed: 09/21/2017 09:18 AM Electronically Signed By:Rachele Jennings RN
[2017-09-21] MEDS: glyBURIDE 5 MG TAB TUBE SCH (10:27)
[2017-09-21] MEDS: ASPIRIN 81 MG CHEWABLE TAB TUBE SCH (10:27)
[2017-09-21] MEDS: APIXABAN 5 MG TAB TUBE SCH ×2 (10:27→21:10)
[2017-09-21] MEDS: SENNOSIDES 17.6 MG/10 ML UDL TUBE SCH (10:28)
[2017-09-21] MEDS: METOPROLOL TARTRATE 50 MG TAB TUBE SCH ×2 (10:28→21:12)
[2017-09-21] MEDS: INSULIN GLARGINE 100 UNITS/ML SYRINGE SC SCH (10:28)
[2017-09-21] MEDS: levOFLOXACIN ORAL 25 MG/ML 100 ML BOTTLE TUBE SCH (11:04)
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
[2017-09-21] MEDS: ATORVASTATIN CALCIUM 40 MG TAB TUBE SCH (21:10)
[2017-09-22] MEDS: INSULIN LISPRO 100 UNIT/ML SC SCH ×5 (00:10→23:59)
[2017-09-22] MEDS: APIXABAN 5 MG TAB TUBE SCH ×2 (08:58→21:44)
[2017-09-22] MEDS: SENNOSIDES 17.6 MG/10 ML UDL TUBE SCH (08:58)
[2017-09-22] MEDS: INSULIN GLARGINE 100 UNITS/ML SYRINGE SC SCH (08:58)
[2017-09-22] MEDS: ASPIRIN 81 MG CHEWABLE TAB TUBE SCH (08:58)
[2017-09-22] MEDS: glyBURIDE 5 MG TAB TUBE SCH (08:58)
[2017-09-22] MEDS: METOPROLOL TARTRATE 50 MG TAB TUBE SCH ×2 (08:58→21:44)
[2017-09-22] MEDS: levOFLOXACIN ORAL 25 MG/ML 100 ML BOTTLE TUBE SCH (09:10)
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
[2017-09-22] MEDS ORDERED: TAMSULOSIN HCL 0.4 MG CAP PO SCH (12:30)
--- NOTE | 2017-09-22 12:46 | WOCRNPDOC ---
WOCRN Advanced Assessment Note - Skin Integrity Problem, Advanced Assess Coccyx Dressing Type: Allevyn Life Dressing Description: Soiled Exudate Amount: Scant Exudate Characteristic(s): Serosanguinous Integumentary Issue Intervention: Dressing Removed, Barrier Cream Applied Belle Wound Tissue: Blanching, Erythema, Denuded Belle Wound Swelling: Mild Wound Bed Color: Red Wound Bed Constitution: Red/Lititz - Non Granular Tissue Pressure Injury Stage: Stage 3 (x2) Pressure Injury Present on Admit: Yes Skin Integrity Problem Comment: Two, discrete pressure injuries adjacent to each other along patient's coccyx, both full-thickness w/ no apparent necrosis. Nursing placed a dressing over this site instead of ordered Calazime, and periwound skin is raw and denuded. Because patient is incontinent of stool, and has some existing moisture-related dermatitis, dressing does not work at this time. Applied Calazime over the wounds, and to surrounding skin. Wound RN will re-evaluate on to determine if a dressing can be applied at that time. Occiput Pressure Injury Dressing Type: Allevyn Life Dressing Description: Clean/Dry, Intact Exudate Amount: None Exudate Characteristic(s): None Integumentary Issue Intervention: Visualized Under Dressing Belle Wound Tissue: Blanching, Intact Belle Wound Swelling: None Wound Bed Color: Red Wound Bed Constitution: Red/Lititz - Non Granular Tissue Pressure Injury Stage: Unstageable Pressure Injury Present on Admit: No (r/t cervical collar) Skin Integrity Problem Comment: Wound on patient's occiput, previously an unstageable pressure injury, now has appearance consistent w/ stage 2 pressure injury. Previously intact, eschar scab has sloughed off, and there is a partial- thickness wound underneath. Continue w/ hydrogel and Allevyn to protect site and relieve pressure. fast food attendant Shana present and assisting.
--- NOTE | 2017-09-22 17:34 | SOAPPROG ---
SOAP Progress Note Assessment/Plan: Assessment: retention and hematuria. discussed with hospitalist and consider removal of kaufman since no clots noted on sono. if pt is anticoagulated and at increased risk of bleeding with catheter Plan: options of catheter or remove discussed 09/22/17 17:31 Subjective: discussion about kaufman catheter Objective: Vital Signs Temp Pulse Resp BP Pulse Ox 35.8 C L 71 20 136/73 H 93 09/22/17 16:02 09/22/17 16:02 09/22/17 16:02 09/22/17 16:02 09/22/17 16:02 Laboratory Results 09/21/17 03:16 09/22/17 03:12 09/21/17 09/22/17 09/23/17 05:59 05:59 05:59 Intake Total 3797 1000 Output Total 2350 3150 700 Balance 1447 -2150 -700 sonogram noted no clots in bladder this AM and I have reviewed this study Physical Exam - Physical Exam General Appearance: other (post CVA) ICD10 Worksheet Patient Problems: Problems Problem Status Onset Acute renal failure Acute Atrial fibrillation Acute CVA (cerebral vascular accident) Acute Chest pain Acute Hyperkalemia Acute Leukocytosis Acute Palliative care encounter Acute
[2017-09-22] MEDS: ATORVASTATIN CALCIUM 40 MG TAB TUBE SCH (21:44)
[2017-09-22] MEDS: TERAZOSIN HCL 1 MG CAP TUBE SCH (21:57)
[2017-09-23] MEDS: INSULIN LISPRO 100 UNIT/ML SC SCH ×3 (06:18→17:57)
[2017-09-23] MEDS: ASPIRIN 81 MG CHEWABLE TAB TUBE SCH (08:51)
[2017-09-23] MEDS: glyBURIDE 5 MG TAB TUBE SCH (08:51)
[2017-09-23] MEDS: METOPROLOL TARTRATE 50 MG TAB TUBE SCH ×2 (08:51→20:35)
[2017-09-23] MEDS: APIXABAN 5 MG TAB TUBE SCH ×2 (08:51→20:36)
[2017-09-23] MEDS: INSULIN GLARGINE 100 UNITS/ML SYRINGE SC SCH (08:52)
[2017-09-23] MEDS: SENNOSIDES 17.6 MG/10 ML UDL TUBE SCH (08:52)
[2017-09-23] MEDS: levOFLOXACIN ORAL 25 MG/ML 100 ML BOTTLE TUBE SCH (08:52)
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
[2017-09-23] MEDS: TERAZOSIN HCL 1 MG CAP TUBE SCH (20:36)
[2017-09-23] MEDS: ATORVASTATIN CALCIUM 40 MG TAB TUBE SCH (20:36)
[2017-09-24] MEDS: INSULIN LISPRO 100 UNIT/ML SC SCH ×3 (00:26→12:46)
[2017-09-24 08:35] VITALS: RESP 16
[2017-09-24] MEDS: METOPROLOL TARTRATE 50 MG TAB TUBE SCH (09:59)
[2017-09-24] MEDS: SENNOSIDES 17.6 MG/10 ML UDL TUBE SCH (09:59)
[2017-09-24] MEDS: INSULIN GLARGINE 100 UNITS/ML SYRINGE SC SCH (09:59)
[2017-09-24] MEDS: glyBURIDE 5 MG TAB TUBE SCH (10:00)
[2017-09-24] MEDS: APIXABAN 5 MG TAB TUBE SCH (10:00)
[2017-09-24] MEDS: ASPIRIN 81 MG CHEWABLE TAB TUBE SCH (10:00)
[2017-09-24 11:12] VITALS: BP 124/63; PULSE 68; TEMP 98; O2SAT 94
[2017-09-24] MEDS: levOFLOXACIN ORAL 25 MG/ML 100 ML BOTTLE TUBE SCH (11:16)
[2017-09-24] MEDS: ACETAMINOPHEN 650 MG/20.3 ML UDCUP TUBE PRN (11:20)
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
--- NOTE | 2017-09-24 13:14 | PDIAF ---
- Diagnosis Diagnosis: sepsis Code Status: Do Not Resuscitate - Medication Management Discharge Medications: Medications to Continue on Transfer Apixaban [Eliquis] 5 mg TUBE BID 09/16/17 [Last Taken Unknown] Aspirin [Aspirin 81mg (*)] 81 mg TUBE DAILY 09/16/17 [Last Taken Unknown] Atorvastatin Calcium [Lipitor 40 mg (*)] 80 mg TUBE HS 09/16/17 [Last Taken Unknown] Insulin Glargine [Lantus 100 UNITS/ML (*)] 26 units SC DAILY 09/16/17 [Last Taken Unknown] Metoprolol Tartrate [Lopressor 50 mg (*)] 50 mg TUBE BID 09/16/17 [Last Taken Unknown] Polyethylene Glycol 3350 [Miralax 17 gm (*)] 17 gm TUBE DAILY PRN 09/16/17 [ Last Taken Unknown] Sennosides/Docusate Sodium [Senna-S Tablet] 1 each TUBE DAILY 09/16/17 [Last Taken Unknown] Terazosin HCl [Hytrin 1 MG (*)] 1 mg TUBE HS cap 09/24/17 [Last Taken Unknown] Discharge Medications: Refer to the Discharge Home Medication list for PRN reason. - Orders Services needed: Registered Nurse, Certified Credit Compliance Officer, Master Whipped Topping Finisher , Physical Therapy, Occupational Therapy, Speech Language Pathologist Diet Texture: Water Protocol, Ice Chips, Non Oral Meds Kaufman: Yes Junior Stockings Discontinue Date: needs kaufman until urology follow up. change and q 4 weeks thereafter - Follow Up Care Current Providers and Referrals: ALYSSIA PATEL [Other] - As per Instructions Daryl Ojeda MD [Medical Doctor] - follow up in 2 weeks (indwelling kaufman for urinary retention. needs outpt follow up w Dr Ojeda who saw him as an inpatient)
--- NOTE | 2017-09-24 13:30 | PDIAF ---
- Diagnosis Diagnosis: sepsis Code Status: Do Not Resuscitate - Medication Management Discharge Medications: Medications to Continue on Transfer Apixaban [Eliquis] 5 mg TUBE BID 09/16/17 [Last Taken Unknown] Aspirin [Aspirin 81mg (*)] 81 mg TUBE DAILY 09/16/17 [Last Taken Unknown] Atorvastatin Calcium [Lipitor 40 mg (*)] 80 mg TUBE HS 09/16/17 [Last Taken Unknown] Insulin Glargine [Lantus 100 UNITS/ML (*)] 26 units SC DAILY 09/16/17 [Last Taken Unknown] Metoprolol Tartrate [Lopressor 50 mg (*)] 50 mg TUBE BID 09/16/17 [Last Taken Unknown] Polyethylene Glycol 3350 [Miralax 17 gm (*)] 17 gm TUBE DAILY PRN 09/16/17 [ Last Taken Unknown] Sennosides/Docusate Sodium [Senna-S Tablet] 1 each TUBE DAILY 09/16/17 [Last Taken Unknown] Terazosin HCl [Hytrin 1 MG (*)] 1 mg TUBE HS cap 09/24/17 [Last Taken Unknown] Discharge Medications: Refer to the Discharge Home Medication list for PRN reason. - Orders Services needed: Registered Nurse, Certified Classroom Technology Coach, Master Scrubber Operator , Physical Therapy, Occupational Therapy, Speech Language Pathologist Diet Texture: Water Protocol, Ice Chips, Non Oral Meds Kaufman: Yes Junior Stockings Discontinue Date: needs kaufman until urology follow up. change and q 4 weeks thereafter Wound Care Instructions: wear blue boots daily. neck hard collar throu 10/24/17 - Follow Up Care Current Providers and Referrals: ALYSSIA PATEL [Other] - As per Instructions Daryl Ojeda MD [Medical Doctor] - follow up in 2 weeks (indwelling kaufman for urinary retention. needs outpt follow up w Dr Ojeda who saw him as an inpatient)
--- NOTE | 2017-09-24 18:39 | GDS ---
[f rep st] DISCHARGE SUMMARY DISCHARGE DIAGNOSES: 1. Sepsis secondary to Escherichia coli urinary tract infection without bacteremia. 2. Urinary retention secondary to hematuria. 3. Atrial fibrillation. 4. 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 5. Urinary retention, also not secondary to urinary clots, requiring Vazquez catheter. Seen by Urolog y. 6. Paroxysmal atrial fibrillation. 7. Acute kidney injury, resolved. 8. Non-ST segment elevation myocardial infarction, felt to be type 2. HOSPITAL COURSE: Please see admission History and Physical by Dr. Jane Kaplan. The patient present ed early in the morning on the from [facility] with chest pain and shortness of breath, still scr atching at his PEG site. Workup revealed UTI and sepsis. He had an elevated troponin that trended d own. EKG showed sinus tachycardia without ST-elevation and really without significant ST or T-wave c hanges. He had an echocardiogram which showed normal EF with no focal wall motion abnormality. He d oes have aortic stenosis that is moderate with a mean gradient of 26 mmHg. The patient was treated w ith antibiotics with improvement. The big issue was his urinary retention with clots, requiring a 3-way Vazquez irrigation. On the , an ultrasound revealed no clots. There was an attempt at removal of the Vazquez, he had to be straight -cathed a number of times for urinary retention. Ultimately, Vazquez was replaced. The patient comple jenny a 9-day course of levofloxacin for urinary tract infection. [facility] with the advisement that he receive outpatient urology followup with an attempt to remove hi s Vazquez catheter. The patient is [id number]. He is on anticoagulation for atrial fibrillation and stroke. /[id number]/MODL
--- NOTE | 2017-09-25 09:25 | ASDISCHSUM ---
Discharge Information Plan Status:SNF Medically Cleared to Leave:09/23/2017 Discharge Date:09/24/2017 03:17 PM CM D/C Disposition:Residential Facility ADT D/C Disposition:Residential Facility Projected Discharge Date:09/24/2017 11:00 AM Transportation at D/C:Wheelchair Van Discharge Delay Reason: Follow-Up Date:09/24/2017 11:00 AM Discharge Slot: Final Diagnosis: Placement Information Referral Type:*Mcc/SNF Referral ID:[id number] Provider Name:[facility] Address 1:[address] Address 2: [facility]:[place] Selection Factors: State:[place] Patient Contact Information Contact Name:ROGELIO Relationship: Address:[address] Work Phone: [facility]:[place] Alternate Phone: [facility]/Zip Code:[place] [address] Email: Financial Information Financial Class: Primary Plan Desc:MEDICARE INPATIENT Primary Plan Number:[id number] Secondary Plan Desc:[employer] [facility] Secondary Plan Number:[id number] Assessment Information [facility] CM Progress Note CM Note CM Note Notes: 09/16/2016 Case Management Note Discussed case with Palliative care GERMINATION TESTING MANAGER and Chaplain Weber. Pt had a stroke approximately 3 weeks ago and was treated at [facility]. Pt d/c to [facility] rehab and was admitted to [facility] from his [facility] rehab stay. Please see palliative note for details on consult. Faxed referrals and updates to [facility]. Case Management d/c poc: return to [facility] pending reacceptance. Case Management to follow. Date Signed: 09/16/2017 02:17 PM Electronically Signed By:Rachele Jennings RN [facility] CM Progress Note CM Note CM Note Notes: Reviewed chart regarding discharge plan, pt's progress. Per MD notes, pt's anticipated discharge is uncertain at this time. Per MD and Palliative Care progress notes, pt will liklel return to [facility] for rehab when stable. CM will cont to follow. Current Discharge Plan: [facility] Date Signed: 09/19/2017 03:30 PM Electronically Signed By:Joana Cain RN [facility] CM Progress Note CM Note CM Note Notes: 09/21/2017 Case Management Note Faxed updates to [facility].] Case Management d/c poc: return to [facility] when medically stable. Case Management to follow. Date Signed: 09/21/2017 09:18 AM Electronically Signed By:Rachele Jennings RN Case Management Discharge Plan Note Case Management Discharge Discharge Order Complete? Answers: Yes Patient to Obtain Answers: Other Notes: [facility] Medications Transportation Arranged Answers: Other Notes: [facility] Transport will Pick (Date 09/24/2017 03:00 PM & Time) HELLEN Complete Answers: No Case Management Transport Answers: Yes Form Complete Faxed Final Orders Answers: Yes Agency/Facility Transfer Answers: Yes Report Printed & Faxed to Receiving Agency Family Notified Answers: No Discharge Comments Notes: Pt is being discharged back to [facility] today. D/C orders sent to [facility]. CM provided Mo RN w/ phone number to give report. CM available for changes. Plan: [facility] Date Signed: 09/24/2017 02:22 PM Electronically Signed By:CELESTINA Escobar Intervention Information Intervention Type:*IM-Signed Date of Service:09/24/2017 02:15 PM Patient Type:Inpatient Staff Member:Martine Mejia Hours: Discipline: Severity: Comment:
--- NOTE | 2017-09-28 16:13 | PQFORM ---
PHYSICIAN QUERY FORM Needs Your Response This query form is being sent to you to assure this patient record is coded properly. Please respond to the question below: ACCESS COORDINATOR QUESTION: Dear Dr. Myrick, In reviewing this patients medical record it was noted the patient had the diagnosis of "Catheter associated UTI." H&P states patient presented with "pal hematuria,' and was noted to have a "chronic indwelling Vazquez catheter." In the Hospitalist Progress Notes dated 09/17-09/24 patient was noted to have the diagnosis of "Catheter associated urinary tract infection and Pyelonephritis." After study, should the diagnosis of "Catheter associated urinary tract infection and Pyelonephritis" be included in the Discharge Summary ? ___X__ Yes No Other more appropriate diagnosis Unable to determine Thank you JOYCE Benedict HIM/Coding Dept. [phone] INSTRUCTIONS FOR RESPONSE: Answer question by clicking on the "Edit Document" button. Move cursor to area below the stars. When complete, hit "Save." Click on the "Sign" button, then click "Sign" again. Type in your PIN and hit "Enter." MTDD
== END 2017-09-24 15:17 | DRG 698 ==
LOC: EDUNIT# → F2N 08:45 → F2W 13:40
PROVIDERS: ADMIT Family Medicine; ATTEND Family Medicine
DX: T83.518A Infection and inflammatory reaction due to other urinary catheter, initial encounter (principal); A41.51 Sepsis due to Escherichia coli [E. coli]; I21.4 Non-ST elevation (NSTEMI) myocardial infarction; L89.153 Pressure ulcer of sacral region, stage 3; N39.0 Urinary tract infection, site not specified; N17.9 Acute kidney failure, unspecified; T83.098A Other mechanical complication of other urinary catheter, initial encounter; R33.8 Other retention of urine; I48.0 Paroxysmal atrial fibrillation; I69.320 Aphasia following cerebral infarction; E11.9 Type 2 diabetes mellitus without complications; E87.5 Hyperkalemia; L89.810 Pressure ulcer of head, unstageable; Z66 Do not resuscitate; Z79.01 Long term (current) use of anticoagulants; Z93.1 Gastrostomy status; Z79.84 Long term (current) use of oral hypoglycemic drugs
CPT/HCPCS: 92507-GN; 92523-GN; 92526-GN; 92610-GN; 92611-GN; 97112-GO; 97112-GP; 97163-GP; 97167-GO; 97530-GO; 97530-GP; 97535-GO; G8978-GP-CM; G8979-GP-CL; G8987-GO-CM; G8988-GO-CL; G8996-GN-CL; G8996-GN-CM; G8997-GN-CL; G8998-GN-CL; G9162-GN-CL; G9163-GN-CL; G9164-GN-CL; J0610; J1335; J1815; J2543; J7613

== ENCOUNTER 2017-09-27 03:27 | Emergency (ER) | payer OTHER, BC ==
--- NOTE | 2017-09-27 03:35 | EDPHY ---
H & P HPI/ROS: HPI CHIEF COMPLAINT: PEG TUBE MALFUNCTION HISTORY OF PRESENT ILLNESS: Patient very pleasant 82-year-old male, resides at [facility] he presents emergency room by EMS for his PEG tube being pulled out. Unclear exactly when this happened but was noticed tonight. The patient reports that it came out an hour ago. Patient has extensive medical history for E coli sepsis, urinary retention, AFib, CVA with right-sided deficits, acute kidney injury. Upon arrival to the emergency room the patient has no complaints specifically denies any pain anywhere. He states he feels fine. Patient is a DNR. Past Medical History: E. Coli Sepsis, AFib, right-sided residual CVA, acute kidney injury Past Surgical History: Peg tube Social History: Resides at [facility]. Denies drugs alcohol tobacco. Family History: Noncontributory ROS REVIEW OF SYSTEMS: A comprehensive 10 point review of systems is otherwise negative aside from elements mentioned in the history of present illness. Exam Constitutional appears well nontoxic, in no acute distress, triage nursing summary reviewed, vital signs reviewed, awake/alert. Eyes normal conjunctivae and sclera, EOMI, PERRLA. HENT in a cervical collar. normal inspection, atraumatic, moist mucus membranes, no epistaxis, neck supple/ no meningismus, no raccoon eyes. Respiratory clear to auscultation bilaterally, normal breath sounds, no respiratory distress, no wheezing. Cardiovascular rate normal, regular rhythm, no murmur, no edema, distal pulses normal. Gastrointestinal abdomen soft central abdomen shows a PEG tube site, clean, and intact, no blood, non-tender, no rebound, no guarding, normal bowel sounds, no distension, no pulsatile mass. Genitourinary no CVA tenderness. Vazquez catheter in place. Musculoskeletal no midline vertebral tenderness, full range of motion, no calf swelling, no tenderness of extremities, no meningismus, good pulses, neurovascularly intact. Skin pink, warm, & dry, no rash, skin atraumatic. Neurologic awake, alert and oriented x 3, AAOx3, moves all 4 extremities equally, motor intact, sensory intact, CN II-XII intact, normal cerebellar, normal vision, normal speech. Psychiatric normal mood/affect. Heme/Lymph/Immune no lymphadenopathy. Differential Diagnosis: Includes but is not limited to in a particular order peg tube dislodgement, need for new PEG tube. Medical Decision Making: Will obtain appropriate size from [facility]. And then try to replace. Re-evaluation: 0337: Spoke with Medicare. They state the patient is a 24 [place] PEG tube. 0350AM: I replaced this patient's PEG tube with an 18 Sudanese PEG tube. Tolerated procedure very well. Balloon is been inflated. Will get a Gastrografin KUB view to make sure it is in correct placement. 0407: Gastrografin approximately 30 mL as were instilled into the PEG tube. This shows good position of the PEG tube with Gastrografin in the stomach lining with rugae . And then going down into the small intestines. Patient be discharged back to his living facility with a new PEG tube. Source: Patient, EMS - Medical/Surgical History Hx Asthma: No Hx Chronic Respiratory Disease: No Hx Diabetes: No Hx Cardiac Disease: No Hx Renal Disease: No Hx Cirrhosis: No Hx Alcoholism: No Hx HIV/AIDS: No Hx Splenectomy or Spleen Trauma: No Other PMH: CVA, Aphasia, G-tube, Vazquez - Social History Smoking Status: Unknown if ever smoked Constitutional: Initial Vital Signs Temperature (C) 36.6 C 09/27/17 03:35 Heart Rate 116 H 09/27/17 03:35 Respiratory Rate 20 09/27/17 03:35 Blood Pressure 109/70 09/27/17 03:35 O2 Sat (%) 95 09/27/17 03:35 O2 Delivery Mode Room Air O2 (L/minute) 2 Allergies/Adverse Reactions: No Known Allergies Allergy (Unverified 09/16/17 02:59) Home Medications: Medication Instructions Recorded Apixaban [Eliquis] 5 mg TUBE BID 09/16/17 Aspirin [Aspirin 81mg (*)] 81 mg TUBE DAILY 09/16/17 Atorvastatin Calcium [Lipitor 40 80 mg TUBE HS 09/16/17 mg (*)] Insulin Glargine [Lantus 100 26 units SC DAILY 09/16/17 UNITS/ML (*)] Metoprolol Tartrate [Lopressor 50 50 mg TUBE BID 09/16/17 mg (*)] Polyethylene Glycol 3350 [Miralax 17 gm TUBE DAILY PRN 09/16/17 17 gm (*)] Sennosides/Docusate Sodium 1 each TUBE DAILY 09/16/17 [Senna-S Tablet] Terazosin HCl [Hytrin 1 MG (*)] 1 mg TUBE HS cap 09/24/17 Departure - Departure Disposition: Home, Routine, Self-Care Clinical Impression: PEG tube malfunction Condition: Good Instructions: Percutaneous Endoscopic Gastrostomy Insertion (DC) Referrals: Patient,NotPresent [Unknown] - As per Instructions
[2017-09-27 03:39] VITALS: RESP 20
[2017-09-27 04:47] VITALS: BP 126/82; PULSE 113; TEMP 98.1; O2SAT 94
== END 2017-09-27 04:45 | disposition home or self-care (01) ==
LOC: EDUNIT#
PROC: 0DH63UZ Insertion of Feeding Device into Stomach, Percutaneous Approach (ICD-10-PCS; principal; 2017-09-27)
DX: K94.23 Gastrostomy malfunction (principal); Z79.4 Long term (current) use of insulin; Z86.73 Personal history of transient ischemic attack (TIA), and cerebral infarction without residual deficits; Z79.82 Long term (current) use of aspirin

== ENCOUNTER 2017-10-02 20:35 | Emergency (ER) | payer OTHER, BC ==
--- NOTE | 2017-10-02 20:43 | EDPHY ---
H & P HPI/ROS: HPI CHIEF COMPLAINT: Peg tube dislodgement HISTORY OF PRESENT ILLNESS: Patient is a 82-year-old male resides at [facility] , presents emergency room by EMS for PEG tube dislodgement. Of note I did see this patient recently and replace PEG tube with an 18 [place] Citizen. He now presents back to the emergency room stating that his PEG tube became dislodged. Unclear exactly how long it has been out. Past Medical History: Atrial fib, ankle is sepsis, CVA, acute kidney injury Past Surgical History: Peg Tube Social History:Lives at [facility]. Family History: Noncontributory ROS REVIEW OF SYSTEMS: A comprehensive 10 point review of systems is otherwise negative aside from elements mentioned in the history of present illness. Exam Constitutional triage nursing summary reviewed, vital signs reviewed, awake/ alert. Eyes normal conjunctivae and sclera, EOMI, PERRLA. HENT normal inspection, atraumatic, moist mucus membranes, no epistaxis, neck supple/ no meningismus, no raccoon eyes. Respiratory clear to auscultation bilaterally, normal breath sounds, no respiratory distress, no wheezing. Cardiovascular rate normal, regular rhythm, no murmur, no edema, distal pulses normal. Gastrointestinal in the middle the abdomen there is a PEG tube site. soft, non- tender, no rebound, no guarding, normal bowel sounds, no distension, no pulsatile mass. Genitourinary no CVA tenderness. Musculoskeletal no midline vertebral tenderness, full range of motion, no calf swelling, no tenderness of extremities, no meningismus, good pulses, neurovascularly intact. Skin pink, warm, & dry, no rash, skin atraumatic. Neurologic awake, alert and oriented x 3, AAOx3, moves all 4 extremities equally, motor intact, sensory intact, CN II-XII intact, normal cerebellar, normal vision, normal speech. Psychiatric normal mood/affect. Heme/Lymph/Immune no lymphadenopathy. Differential Diagnosis: Includes but is not limited to in a particular order peg tube dislodgement, malfunction of PEG tube Medical Decision Making: Plan for patient rice PEG tube here in emergency room Re-evaluation: 2054: I made an attempt to replace the PEG tube however we only have 20 [place] Citizen here in the emergency room. This would not fit down his PEG tube site. Last time he had an 18 [place] Citizen WE do not have the appropriate size PEG tube. Will place a Vazquez catheter. Will additionally consult Gastroenterology. Patient will need eventually definitive PEG tube placement. 2214: I was able to place a 12 [place] Citizen Vazquez catheter in this patient's PEG tube site. Will confirm with KUB and Gastrografin view. This to his rather small he does get feeds to it. This is not definite however this will do okay for the time being. He can be discharged back to his living facility. He will need GI see follow-up for definitive PEG tube. 2214: I did consult Dr. Medellin on this patient's case he understands the patient will need a definitive PEG tube. He was fine with the Vazquez catheter at this time. Source: Patient, EMS - Medical/Surgical History Hx Asthma: No Hx Chronic Respiratory Disease: No Hx Diabetes: No Hx Cardiac Disease: No Hx Renal Disease: No Hx Cirrhosis: No Hx Alcoholism: No Hx HIV/AIDS: No Hx Splenectomy or Spleen Trauma: No Other PMH: CVA, Aphasia, G-tube, Vazquez - Social History Smoking Status: Unknown if ever smoked Constitutional: Initial Vital Signs Temperature (C) 36.5 C 10/02/17 20:43 Heart Rate 78 10/02/17 20:43 Respiratory Rate 16 10/02/17 20:43 Blood Pressure 161/77 H 10/02/17 20:43 O2 Sat (%) 96 10/02/17 20:43 O2 Delivery Mode Room Air Allergies/Adverse Reactions: No Known Allergies Allergy (Unverified 09/16/17 02:59) Home Medications: Medication Instructions Recorded Apixaban [Eliquis] 5 mg TUBE BID 09/16/17 Aspirin [Aspirin 81mg (*)] 81 mg TUBE DAILY 09/16/17 Atorvastatin Calcium [Lipitor 40 80 mg TUBE HS 09/16/17 mg (*)] Insulin Glargine [Lantus 100 26 units SC DAILY 09/16/17 UNITS/ML (*)] Metoprolol Tartrate [Lopressor 50 50 mg TUBE BID 09/16/17 mg (*)] Polyethylene Glycol 3350 [Miralax 17 gm TUBE DAILY PRN 09/16/17 17 gm (*)] Sennosides/Docusate Sodium 1 each TUBE DAILY 09/16/17 [Senna-S Tablet] Terazosin HCl [Hytrin 1 MG (*)] 1 mg TUBE HS cap 09/24/17 Hydrocodone/APAP 5/325 [Horner 1 - 2 tab PO Q4H PRN #20 tab 10/02/17 5/325] Departure - Departure Disposition: Home, Routine, Self-Care Clinical Impression: PEG tube malfunction Condition: Good Instructions: Percutaneous Endoscopic Gastrostomy Insertion (DC) Additional Instructions: 1. You have a Vazquez catheter placed as a PEG tube at this time. 2. We were unable to get a appropriate size ache tube in at this time. 3. You will need to follow up with Gastroenterology have a correct PEG tube placed. 4. Please call for an appointment to have this done early this week. Referrals: Patient,NotPresent [Primary Care Provider] - As per Instructions Edward Medellin MD [Medical Doctor] - As per Instructions Prescriptions: Hydrocodone/APAP 5/325 [Horner 5/325] 1 - 2 tab PO Q4H PRN #20 tab PRN Reason: Pain, Moderate
[2017-10-02 20:45] VITALS: RESP 16; O2SAT 96
[2017-10-02 23:23] VITALS: BP 131/74; PULSE 66; TEMP 97.9
== END 2017-10-02 23:39 | disposition home or self-care (01) ==
LOC: EDUNIT#
PROC: 0DP63UZ Removal of Feeding Device from Stomach, Percutaneous Approach (ICD-10-PCS; principal; 2017-10-02)
PROC: 0DH63UZ Insertion of Feeding Device into Stomach, Percutaneous Approach (ICD-10-PCS; principal; 2017-10-02)
DX: K94.23 Gastrostomy malfunction (principal); Z79.4 Long term (current) use of insulin; Z79.82 Long term (current) use of aspirin; Z86.73 Personal history of transient ischemic attack (TIA), and cerebral infarction without residual deficits

== ENCOUNTER 2017-10-05 05:55 | Inpatient (IN) | payer OTHER, BC ==
[2017-10-05] MEDS ORDERED: LIDOCAINE 2% JELLY 20 ML (UROJECT) UR ONE (05:59)
[2017-10-05] MEDS ORDERED: LIDOCAINE 2% JELLY 20 ML (UROJECT) ONE (05:59)
--- NOTE | 2017-10-05 06:05 | EDPHY ---
H & P Source: Patient, EMS, Old records - Medical/Surgical History Hx Asthma: No Hx Chronic Respiratory Disease: No Hx Diabetes: No Hx Cardiac Disease: No Hx Renal Disease: No Hx Cirrhosis: No Hx Alcoholism: No Hx HIV/AIDS: No Hx Splenectomy or Spleen Trauma: No Other PMH: CVA, Aphasia, G-tube, Kaufman - Social History Smoking Status: Unknown if ever smoked HPI/ROS: HPI CHIEF COMPLAINT: Blood in Kaufman catheter, possibly dislodged Kaufman catheter HISTORY OF PRESENT ILLNESS: This is 82-year-old male, who I am very familiar with, recently seen in the emergency room for multiple times for PEG tube dislodgement. He presents emergency room from [facility] for his Kaufman catheter having blood in it. [facility], reports the patient fell out of bed and his Kaufman catheter was attached to the other side of the bed and pulled. After the placed the patient back in bed they could not get the Kaufman catheter to work and had blood in it. They initially called for lift assist however decided to send emergency room for evaluation. Upon arrival to the emergency room the patient appears at his neurological baseline is alert or x1, he is in a cervical collar just like all the other ER visits, he has no head and neck trauma on exam. He denies any complaints. His Kaufman catheter is noted to be somewhat dislodged. Blood in the Kaufman catheter. We did a bladder scan his 500 cc of urine in his bladder. Plan will be to changes Kaufman catheter. And then most likely send him back to [facility]. I do not see any evidence of head or neck trauma do not feel that he needs any further imaging EMS reports that his bed was 6 in off the ground is very low- lying bed for this purpose. Patient denies headache or neck pain. Past Medical History: History of sepsis, atrial fibrillation, right-sided CVA with right-sided deficits, peg tube, indwelling Kaufman catheter Past Surgical History: Denies recent surgery, history of PEG tube placement Social History: Lives at [facility] Family History: Noncontributory ROS REVIEW OF SYSTEMS: A comprehensive 10 point review of systems is otherwise negative aside from elements mentioned in the history of present illness. Exam Constitutional appears well nontoxic no acute distress, the at neurological baseline, triage nursing summary reviewed, vital signs reviewed, awake/alert. Eyes normal conjunctivae and sclera, EOMI, PERRLA. HENT head/neck atraumatic, in cervical collar [place]. normal inspection, atraumatic, moist mucus membranes, no epistaxis, neck supple/ no meningismus, no raccoon eyes. Respiratory clear to auscultation bilaterally, normal breath sounds, no respiratory distress, no wheezing. Cardiovascular rate normal, regular rhythm, no murmur, no edema, distal pulses normal. Gastrointestinal does not have distended abdomen. No significant tenderness on exam, soft, non-tender, no rebound, no guarding, normal bowel sounds, no distension, no pulsatile mass. Genitourinary Kaufman catheter tubing is out of his penis prolonged. Bright red blood in the Kaufman tube. Musculoskeletal no midline vertebral tenderness, full range of motion, no calf swelling, no tenderness of extremities, no meningismus, good pulses, neurovascularly intact. Skin pink, warm, & dry, no rash, skin atraumatic. Neurologic alert and x1 at his baseline, right-sided lower and upper extremity weakness, contracture Psychiatric normal mood/affect. Heme/Lymph/Immune no lymphadenopathy. Differential Diagnosis: Includes but is not limited to in a particular order Kaufman catheter dislodgement, kaufman cath irritation on the system leading to bleeding, dislodged Kaufman catheter, urethral tear Medical Decision Making: Plan for this patient replace Kaufman catheter. Make sure it drains appropriately. And then patient return back to [facility]. 0723: I did go re-evaluate this patient at this time. Patient is noted to have now heart rate in the 130s to 140s it appears irregular. Most likely this is AFib with RVR. His blood pressure stable 150/110. His pulse ox is 84% at this time. He is complaining of left-sided rib pain. I palpated on this and he does appear uncomfortable. 0724AM: Spoke with GI, Dr. Medellin, he got scheduled for G-tube replacement. Study to his tachycardia and hypoxia this was an acute change in vital signs since arriving to the emergency room he did fall out of his bed it is unclear maybe he has a rib injury or pneumothorax. Will proceed with chest x-ray to rule out pneumothorax, will start an IV, IV fluid bolus, check EKG due to tachycardia most likely AFib. Also additionally the patient appears agitated I will give him a dose of Ativan. His daughter is at bedside. We discussed this at length. His daughter request that we do not perform any significant aggressive measures as they think he should be made comfort measures. I will on the daughter's wishes at bedside P however proceed with blood work, x-ray, EKG, IV fluids and IV Ativan at this time. EKG interpretation by me on record in [employer] system. Impression time of EKG 7:29 a.m., sinus tachycardia rate of 103. Left anterior block present. I do not appreciate irregular rhythm. Does not appear to be AFib. 0730AM: Patient is signed over to Dr. Dustin Baird, we discussed the case in length about patient's workup he has pending blood work, x-ray. X-ray to rule out pneumothorax on left side. This due to hypoxia and tachycardia. Additionally I have ordered 1 mg Ativan to calm his agitation. Additionally IV fluids. Will check UA. Will check basic blood work. Most likely this patient need to be admitted the hospital. There was no plan to replace his PEG tube at this time. To the abnormal vitals will try to stabilize his vitals. His daughter is at bedside does not want any aggressive measures but is fine with IV fluids and medications at this time. (Vinh King) Constitutional: Initial Vital Signs Temperature (C) 36.9 C 10/05/17 06:13 Heart Rate 88 10/05/17 06:13 Respiratory Rate 16 10/05/17 06:13 Blood Pressure 153/77 H 10/05/17 06:13 O2 Sat (%) 92 10/05/17 06:13 O2 Delivery Mode Nasal Cannula O2 (L/minute) 6 Allergies/Adverse Reactions: No Known Allergies Allergy (Verified 10/05/17 10:56) Home Medications: Medication Instructions Recorded Apixaban [Eliquis] 5 mg TUBE BID 09/16/17 Aspirin [Aspirin 81mg (*)] 81 mg TUBE DAILY 09/16/17 Atorvastatin Calcium [Lipitor 40 80 mg TUBE HS 09/16/17 mg (*)] Metoprolol Tartrate [Lopressor 50 50 mg TUBE BID 09/16/17 mg (*)] Polyethylene Glycol 3350 [Miralax 17 gm TUBE DAILY PRN 09/16/17 17 gm (*)] Sennosides/Docusate Sodium 1 each TUBE DAILY 09/16/17 [Senna-S Tablet] Terazosin HCl [Hytrin 1 MG (*)] 1 mg TUBE HS cap 09/24/17 Acetaminophen [Tylenol 325mg (*)] 650 mg PO Q4 PRN 10/05/17 Insulin Glargine [Lantus 100 26 units SC DAILY 10/05/17 UNITS/ML (*)] LORazepam [Ativan (*)] 0.5 mg PO Q6H PRN 10/05/17 Medical Decision Making - Diagnostics EKG Interpretation: Please see my EKG report and trace master (Dustin Baird) Imaging Results: Imaging Impressions Chest X-Ray 10/05/17 07:22 Impression: 1. Poor inspiratory phase without definite pneumonia. 2. Mild chronic bronchitis/airways disease. 3. Atherosclerotic aorta. 4. No pneumothorax. 5. No definite rib fracture although consider dedicated rib series if clinically indicated. Imaging Impressions Chest X-Ray 10/05/17 07:22 Impression: 1. Poor inspiratory phase without definite pneumonia. 2. Mild chronic bronchitis/airways disease. 3. Atherosclerotic aorta. 4. No pneumothorax. 5. No definite rib fracture although consider dedicated rib series if clinically indicated. Chest/Thorax CTA 10/05/17 08:20 Impression: 1. There is no CT evidence of pulmonary artery thromboemboli. 2. Mild cardiomegaly, without congestive heart failure. 3. There is no acute rib fracture identified, or evidence of pneumothorax. 4. Mild bibasilar subsegmental atelectasis, improved from 09/17/2017. 5. Cardiomegaly with extensive coronary artery atherosclerotic calcifications and aortic and mitral valvular calcifications. 6. Mild thyroid goiter. 7. Small hiatal hernia. 8. Borderline-splenomegaly. Findings were discussed with DUSTIN BAIRD MD at 9:13 AM, on 10/05/2017. CT chest shows no evidence for PE (Dustin Baird) Procedures: IV diltiazem bolus and drip. Heart rate is better controlled (Dustin Baird) ED Course/Re-evaluation: Patient care was turned over to me by Dr. davis. Originally the patient was here for catheter replacement her traumatic removal of the catheter. He was set for discharge and then became tachycardic and increasing oxygen needs. Apparently he is Jeffrey onto the L of oxygen and now is requiring about 6 L to get him to 91% saturation on room air. He is also tachycardic to a rate of up to 140. I saw the patient at 7:30 a.m.. EKG reviewed by me shows sinus tachycardia and left anterior fascicular block with rate of 130. Laboratory evaluation is ordered. Fluid bolus is ordered. Increased oxygen. Chest x-ray Is pending as point. I have also consulted and discussed case JONO Dodge, who was working on the PEG tube. I had a long conversation with the patient and his 2 daughters. We discussed recommendation for admission, a treatment plan. We discussed palliative care options as well as options for intervention but not resuscitation as the patient does have a DNR. I consulted and discussed the case with Dr. King, hospitalist, who agrees to the admission (Dustin Baird) Differential Diagnosis: That is appears to be rapid AFib. I considered pulmonary embolus as well. ( Dustin Baird) Critical Care Time: Critical care time exclusive procedures 40 min (Dustin Baird) - Data Points Laboratory Results: Laboratory Results 10/05/17 07:40 10/05/17 07:40 Medications Given: Albuterol/Ipratropium (Duoneb) 3 ml IH QID [facility]1983 Stop: 04/03/18 15:59 Last Admin: 10/05/17 20:26 Dose: 3 ml Atorvastatin Calcium (Lipitor) 80 mg TUBE HS [facility]1983 Stop: 04/03/18 20:59 Last Admin: 10/05/17 20:08 Dose: 80 mg Sodium Chloride (Ns) 1,000 mls @ 100 mls/hr IV CONT CATRACHITO Stop: 04/03/18 16:29 Last Admin: 10/05/17 17:11 Dose: 1,000 mls Insulin Glargine (Lantus Syringe) 20 units SC HS CATRACHITO Stop: 04/03/18 20:59 Last Admin: 10/05/17 20:08 Dose: 20 units Insulin Human Lispro (Humalog Lispro) 0 unit SC Q6H CATRACHITO PRN Reason: Protocol Stop: 04/03/18 14:29 Last Admin: 10/05/17 20:07 Dose: 3 units Metoprolol Tartrate (Lopressor) 50 mg TUBE BID CATRACHITO Stop: 04/03/18 14:51 Last Admin: 10/05/17 20:08 Dose: 50 mg Terazosin HCl (Hytrin) 1 mg TUBE HS CATRACHITO Stop: 04/03/18 20:59 Last Admin: 10/05/17 20:08 Dose: 1 mg Discontinued Medications Diltiazem HCl (Cardizem 25 Mg/5 Ml Vial) 20 mg IVP EDNOW ONE Stop: 10/05/17 09:54 Last Admin: 10/05/17 10:49 Dose: 20 mg Sodium Chloride (Ns) 1,000 mls @ 0 mls/hr IV ONCE ONE PRN Reason: Wide Open Stop: 10/05/17 07:23 Last Admin: 10/05/17 07:15 Dose: 1,000 mls Sodium Chloride (Ns) 1,000 mls @ 0 mls/hr IV ONCE ONE; Wide Open PRN Reason: Protocol Stop: 10/05/17 08:21 Last Admin: 10/05/17 08:34 Dose: 1,000 mls Diltiazem HCl 125 mg/ Dextrose 125 mls @ 0 mls/hr IV EDNOW ONE; As Directed PRN Reason: Protocol Stop: 10/05/17 09:54 Last Admin: 10/05/17 11:20 Dose: 125 mls Lidocaine (Uroject Lidocaine 2% Jelly) 20 ml UR EDNOW ONE Stop: 10/05/17 06:00 Last Admin: 10/05/17 06:13 Dose: 20 ml Lorazepam (Ativan Injection) 1 mg IVP EDNOW ONE Stop: 10/05/17 07:27 Last Admin: 10/05/17 08:14 Dose: 1 mg Departure - Departure Disposition: [facility] Clinical Impression: Tachycardia, Hypoxia Kaufman catheter problem Qualifiers: Encounter type: initial encounter Qualified Code(s): T83.9XXA - Unspecified complication of genitourinary prosthetic device, implant and graft, initial encounter Hematuria Qualifiers: Hematuria type: gross Qualified Code(s): R31.0 - Gross hematuria Atrial fibrillation Qualifiers: Atrial fibrillation type: unspecified Qualified Code(s): I48.91 - Unspecified atrial fibrillation Condition: Good
[2017-10-05] MEDS ORDERED: NS 1,000 ML IV ONE ×2 (07:22→08:20)
[2017-10-05] MEDS ORDERED: LORazepam 2 MG/ML INJ IVP ONE (07:26)
--- NOTE | 2017-10-05 07:28 | CPEKG ---
Heart Rate: 130 RR Interval: 462 P-R Interval: 132 QRSD Interval: 80 QT Interval: 312 QTC Interval: 459 P [place]: 48 QRS [place]: -66 T Wave [place]: 77 EKG Severity - ABNORMAL ECG - EKG Impression: SINUS TACHYCARDIA EKG Impression: LEFT ANTERIOR FASCICULAR BLOCK Electronically Signed By: Nikolas Baird 05-Oct-2017 15:24:01
[2017-10-05 07:50] LABS: PLATELET COUNT 224 10^3/uL (150-400)
[2017-10-05 07:58] LABS: INR 1.02 (0.83-1.16); PROTIME(PATIENT) 13.6 SEC (12.0-15.0)
[2017-10-05] MEDS ORDERED: IOPAMIDOL (ISOVUE 370) 100 ML BTL IV ONE (08:33)
[2017-10-05] MEDS ORDERED: DILTIAZEM 125 MG in D5W 125 ML IV ONE (09:53)
[2017-10-05] MEDS ORDERED: DILTIAZEM 25 MG/5 ML VIAL IVP ONE (09:53)
--- NOTE | 2017-10-05 12:54 | CPEKG ---
Heart Rate: 121 RR Interval: 496 P-R Interval: 131 QRSD Interval: 84 QT Interval: 324 QTC Interval: 460 P [place]: 68 QRS [place]: 259 T Wave [place]: 74 EKG Severity - ABNORMAL ECG - EKG Impression: SINUS TACHYCARDIA EKG Impression: RIGHT AXIS DEVIATION EKG Impression: INFERIOR INFARCT, OLD EKG Impression: CONSIDER ANTEROSEPTAL INFARCT EKG Impression: COMPARED WITH 10/05/2017 AT 7:27 NO SIGNIFICANT CAHNGE Electronically Signed By: Bethany Townsend 05-Oct-2017 19:51:51
[2017-10-05] MEDS ORDERED: ONDANSETRON 4 MG/2 ML VIAL IVP PRN (14:20)
[2017-10-05] MEDS ORDERED: ACETAMINOPHEN 650 MG SUPP PR PRN (14:20)
[2017-10-05] MEDS ORDERED: D50W 25 GM/50 ML SYR IVP PRN (14:24)
[2017-10-05] MEDS ORDERED: POLYETHYLENE GLYCOL 3350 17 GM PKT TUBE PRN (14:26)
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
--- NOTE | 2017-10-05 16:25 | PDCONSULT ---
Train Control Technician Note: BRIEF GI NOTE Patient with 4 week old PEG. Recently pulled PEG, and has kaufman in place. Attempts to place a 20Fr, balloon fixed, replacement PEG into the os were unsuccessful. The os was too small to accommodate the tube. The 14Fr kaufman was replaced into the os. GI stock does not include anything smaller than 20Fr. IR service, too, did not stock anything smaller than 20Fr. PLAN: 1. will order 16Fr and 18Fr replacements, and hope that those can fit. 2. uncertain when the PEGs will arrive, likely 48-96hrs.
[2017-10-05] MEDS: IPRATROPIUM/ALBUTEROL 3 ML DEYVIAL IH SCH ×2 (16:40→20:26)
[2017-10-05] MEDS: METOPROLOL TARTRATE 50 MG TAB TUBE SCH ×2 (16:42→20:08)
[2017-10-05] MEDS: NS 1,000 ML IV SCH (17:11)
[2017-10-05] MEDS: INSULIN LISPRO 100 UNIT/ML SC SCH ×2 (17:46→20:07)
--- NOTE | 2017-10-05 17:53 | GCON ---
[f rep st] CONSULTATION DATE OF CONSULTATION: 10/05/2017 REASON FOR CONSULTATION: Ligamentous strain noted on imaging after a fall approximately 1 month ago. HOSPITAL COURSE/HISTORY/MAJOR MEDICAL FINDINGS: The patient is an 82-year-old gentleman, who was in a great state of health until approximately 1 month ago when he was driving to work and one of his co workers noticed that he started to have some right-sided weakness. He was admitted to [facility] at that time and was found to have a large stroke. At that time, per his daughters that are i n the room with him, they state that he developed diffuse right-sided weakness, as well as aphasia an d altered mental status. He has been at [facility] and has tried to get out of bed and fallen multipl e times. He has also had multiple repeat episodes of trying to dislodge his PEG tube, as well as his Vazquez catheter and has had blood in his Vazquez catheter. He has been maintained in a hard cervical c ollar for the last month after he underwent an MRI, which demonstrated cervical strain from C3-C6. P er his daughters, he was brought to the hospital today because of more blood clots that were found in his Vazquez, and when assessed by the ER doctor, he was grimacing and demonstrated signs of acute pain near his PEG tube site. Per their knowledge, he has fallen multiple times because of impulsivity an d getting out of bed at [facility]. REVIEW OF SYSTEMS: Unable to be obtained. The patient is not appropriately following commands or an swering questions appropriately, and the history is maintained from the patient's daughters, who are at bedside and the medical record. PAST MEDICAL HISTORY: Significant for history of sepsis, atrial fibrillation, CVA with right-sided d eficits, history of a PEG tube with an indwelling catheter. SOCIAL HISTORY: The patient's daughters are with him today. They are POAs for him. He is currently living at [facility]. FAMILY HISTORY: Noncontributory. ALLERGIES: No known drug allergies. MEDICATIONS: Medications at [facility] include Eliquis, aspirin 81 mg 1 p.o. q. day, Lipitor 40 mg 1 p.o. q. day, metoprolol 50 mg 1 p.o. b.i.d., MiraLAX 75 g per day, senna-S q. day, Hytrin 1 mg p.o. q . day, acetaminophen 325 mg 2 tabs q.4 hours p.r.n. pain, Lantus 26 units subcu q. day, and Ativan 0. 5 mg 1 p.o. q.6 hours as needed. PHYSICAL EXAMINATION: VITAL SIGNS: BP is 122/80, heart rate is 115, respiratory rate is 25. He is 94% on 6 L nasal cannula, and temperature is 37.0. NEUROLOGIC: The patient is in no acute distress. He does mumble when asked questions. He is moving his left upper arm and his right lower leg spont aneously and his left lower leg spontaneously. No movement was appreciated in his right upper arm. The patient does not follow commands. The posterior neck was palpated. There was no palpable deform ity or step-off. The patient does not appear to want to grimace with palpation of the neck. ASSESSMENT AND PLAN: The patient is an 82-year-old gentleman, who has recently sustained a stroke an d is currently not following commands. His daughters did state that he did get a dose of Ativan rece ntly, and typically after Ativan, he is not participatory with the exams. He will have periods of ti me where he does have some mental clarity, but is not fully following commands. Patient was seen bot h by Dr. Lewis and me, and a long discussion was had with the daughters, who are POA, that at this p oint in time, given the patient's inability to fully follow commands and answer questions that luís valderramay at this point 4 weeks after his injury we would work towards removing the collar, either via exam or flexion/extension x-rays. Unfortunately, given the patient's current state, we are unable to ful ly complete the those. We will see him again tomorrow to see if his mental status has improved once the Ativan has been able to be out of his system. Discussion was made with the daughters that we danette l attempt to remove the cervical collar tomorrow. If he is not able to participate in the exam, we w ill see how he does and if he shows any signs of pain after removing the collar. If he does not have any signs of pain, then we will go ahead and keep the collar off. If he does show signs of pain aft er removing the collar with any range of motion, we will replace the collar. I did discuss with the patient's daughters the risks and benefits of removing the collar, including worsening neck, ligament ous instability. They understand the process of clearing the collar, as well as the risks and benefi ts of doing so, and we will see the patient again tomorrow to evaluate. /[id number]/MODL
--- NOTE | 2017-10-05 17:58 | PDMN ---
Medical Necessity Medical necessity: est los>2mn for acute hypoxemic resp failure, hematuria r/t Vazquez trauma, sinus tachycardia, episode of rapid afib in ED; admit for tele monitoring, supplemental O2, IV Lasix, NS consult, and further eval w/ palliative care consult; recent stoke w/residual R hemiparesis, aphasia & dysphagia w/PEG requiring replacement, on AC, cervical spine injury w/hard collar in place; per order and H&P 10/05/17
[2017-10-05] MEDS ORDERED: METOPROLOL TARTRATE 50 MG TAB TUBE SCH (19:00)
[2017-10-05] MEDS ORDERED: ATORVASTATIN CALCIUM 40 MG TAB TUBE SCH (21:00)
[2017-10-05] MEDS ORDERED: TERAZOSIN HCL 1 MG CAP TUBE SCH (21:00)
[2017-10-05] MEDS ORDERED: INSULIN GLARGINE 100 UNITS/ML UNIT SC SCH (21:00)
[2017-10-06] MEDS: NS 1,000 ML IV SCH ×2 (01:29→11:49)
[2017-10-06] MEDS: INSULIN LISPRO 100 UNIT/ML SC SCH ×3 (02:49→15:52)
[2017-10-06 04:48] LABS: PLATELET COUNT 187 10^3/uL (150-400)
[2017-10-06] MEDS: IPRATROPIUM/ALBUTEROL 3 ML DEYVIAL IH SCH ×2 (06:11→09:35)
--- NOTE | 2017-10-06 08:02 | NEUSURGPN ---
Assessment/Plan: A: 82 yo M with stroke 1 month ago, hx of ligamentous injury C3-6. Has been in hard collar. Plan: -Hard collar removed this am, no grimacing with palpation of C spine. Moving head and extremities -Speech is slurred, difficult to understand. -Weakness RUE/RLE, moving LUE/LLE but not to command -RN to call with any signs of pain -Family to discuss possible hospice today -D/w Dr Lewis -NS will plan to sign off and follow peripherally, please call with any questions/issues. Follow up PRN. Subjective: Unable to obtain. Objective: Awake and alert C collar on No grimacing or obvious signs of pain with palpation of C spine Weakness RUE/RLE, moving LUE/LLE but not to command Urinary Catheter in Place: Yes Urinary Catheter Indication: Acute Urinary Retention Catheter Insertion Date: 10/05/17 - Physician Discussed Patient with Dr.: Lewis Neurosurgery Physical Exam - Vitals, I&O, Labs I and O 10/05/17 10/06/17 10/07/17 05:59 05:59 05:59 Intake Total 1243 Output Total 300 Balance 943 Weight 77.9 kg Intake: IV Infused (ml) 1243 Diltiazem 125 mg In D5w 78 125 ml @ As Directed IV EDNOW ONE Rx#:[id number] Ns 1,000 ml @ 100 mls/hr 1165 IV CONT CATRACHITO Rx#: [id number] Output: Urine (ml) 300 Catheter 300 Microbiology 10/05/17 16:30 Respiratory Panel (PCR) - Final Nasal, Sinus - Anaerobic Tube/Swab No Organism Detected Vital Signs Temp Pulse Resp BP Pulse Ox 36.9 C 88 20 121/63 H 95 10/06/17 04:36 10/06/17 04:36 10/06/17 06:13 10/06/17 04:36 10/06/17 06:13 Laboratory Results 10/06/17 03:45 10/06/17 03:45 ICD10 Worksheet Patient Problems: Problems Problem Status Onset Atrial fibrillation Acute Vazquez catheter problem Acute Hematuria Acute Hypoxia Acute Tachycardia Acute Acute renal failure Acute CVA (cerebral vascular accident) Acute Chest pain Acute Hyperkalemia Acute Leukocytosis Acute Palliative care encounter Acute
[2017-10-06] MEDS ORDERED: ASPIRIN 81 MG CHEWABLE TAB TUBE SCH (09:00)
[2017-10-06] MEDS: METOPROLOL TARTRATE 50 MG TAB TUBE SCH (10:33)
--- NOTE | 2017-10-06 11:06 | GCON ---
[f rep st] CONSULTATION NEUROLOGY CONSULT DATE OF CONSULTATION: 10/06/2017 REFERRING PHYSICIAN: Dr. King CHIEF COMPLAINT: Previous large left hemisphere stroke. HISTORY OF PRESENT ILLNESS: The patient is a very pleasant 82-year-old gentleman, who was apparently in excellent health until August of last year, 2016, when he was driving and apparently had an acute large left hemisphere stroke from underlying atrial fibrillation, which was unknown until the time of stroke. He was treated at [facility]. Ultimately, he was discharged to [facility] on oral anticoagulation with a dense right hemiparesis and aphasia. He has had multiple medical complications since that time including sepsis. He has been unable to swallow and has required a PEG tube, which he pulled out along with some recent hematuria. Overall, he has had little progress in terms of any recovery, and we are consulted today to review his neurologic prognosis. For past medical history, social history, family history, home medications, allergies, please see Dr. King's H and P. PHYSICAL EXAM: VITAL SIGNS: Blood pressure 121/63, temperature 36.9, respirations 16. The patient in terms of higher mental status is somnolent, but wakes to voice, has significant mixed aphasia, and appears confused. On cranial nerve exam, he has a right facial hemiparesis and a dense right hemiparesis in both limbs with no appreciable movement. IMPRESSION/PLAN: 1. Previous left hemisphere stroke. 2. Atrial fibrillation. We are consulted to discuss his neurologic prognosis as he pulled out his PEG tube and his 3 daughters are in the process of deciding whether to reinsert the tube for feeding as he cannot take p.o. now due to his dysphagia. I discussed based on his advanced age, the severe degree of deficits based on the stroke, and his multiple medical comorbidities and complications, that the neurologic prognosis is guarded in terms of a meaningful recovery with appreciable quality of life. They appreciated and understood my counseling. They are likely to decide to not reinsert the PEG tube and pursue a comfort / palliative care route. I think this is reasonable based on the entire clinical picture. Indeed , we did ask the patient himself and he wants to be "let go," does not want a feeding tube, and was fairly reliable when asked several times in several different ways regarding the above. His 3 daughters are medical power of recreational aide and understand his wishes. I have no further recommendations now. We will sign off and follow up as needed. Please do not hesitate to call with any questions or changes in neurologic status with this very pleasant patient. Seventy total minutes of floor time today reviewing the previous records, and direct counseling with the patient's daughter and him, along with coordination of care. /[id number]/MODL MTDD
--- NOTE | 2017-10-06 11:22 | WOCRNPDOC ---
WOCRN Advanced Assessment Note - Skin Integrity Problem, Advanced Assess Posterior Medial Proximal Head Pressure Injury Dressing Type: Open to Air Exudate Amount: None Belle Wound Tissue: Blanching, Intact Belle Wound Swelling: None Wound Bed Color: Brown Wound Bed Constitution: Scab Wound Edges: Well Defined Site Measurement - Head-to-Toe Length X Width X Depth (cm): 0.4x0.8xscab Pressure Injury Stage: Unstageable, Do All Operator Related Pressure Injury Pressure Injury Present on Admit: Yes (cervical collar) Skin Integrity Problem Comment: Visited patient with TAVO Domínguez in room. Patient assisted in leaning forward to visualize wound. Wound much smaller than in previous documentation. Scab very dry and flaky, with portions flaking off during assessment. More importantly, patient has been cleared of need for cervical collar per TAVO Domínguez. With medical assistant per diem removed, this wound will no longer be an issue. Will not order for this wound to be covered as it is very near completely healed. Scab will likely slough off in the next day or two. Wound care will not continue to follow this wound. Please reconsult PRN. Coccyx Pressure Injury Dressing Type: Allevyn Life Dressing Description: Clean/Dry, Intact Exudate Amount: Minimal Exudate Color: Yellow, Brown Exudate Characteristic(s): Thick Integumentary Issue Intervention: Visualized Under Dressing Belle Wound Tissue: Blanching, Erythema, Intact Wound Bed Color: Novelty, Yellow Wound Bed Constitution: Mixed Loose & Adhered Slough/Eschar (30%) Site Measurement - Head-to-Toe Length X Width X Depth (cm): 6.5x4.5xslough Pressure Injury Stage: Unstageable (Previously documented as Stage 3) Pressure Injury Present on Admit: Yes Skin Integrity Problem Comment: Patient rolled to his right side with assist from TAVO Domínguez. Visualized under Allevyn to find slough filled wound bed. Distal to the wound, and on each side of the gluteal cleft, are symetric openings, also likely pressure related. Will order for pressure relieving measures and debridement of the wound bed with honey. Wound care will round again later this week.
[2017-10-06 12:46] VITALS: BP 130/65; PULSE 90; RESP 18; TEMP 98.7; O2SAT 98
--- NOTE | 2017-10-06 17:27 | ASDISCHSUM ---
Discharge Information Plan Status:SNF Medically Cleared to Leave:10/05/2017 Discharge Date:10/06/2017 05:03 PM D/C Disposition:[facility] Facility ADT D/C Disposition:[facility] Facility Projected Discharge Date:10/06/2017 11:00 AM Transportation at D/C:ALS/BLS Discharge Delay Reason: Follow-Up Date:10/06/2017 11:00 AM Discharge Slot: Final Diagnosis: Placement Information Referral Type:*Intermediate/SNF Referral ID:[id number] Provider Name:[facility] Address 1:[address] [place], [place] [address]y Address 2: City:[place] Selection Factors: State:[place] Referral Type:Palliative Care Referral ID:[id number] Provider Name:Jannet Donnelly ([facility]) Address 1:[address] [place] [address] Address 2:[facility] [address] City:[place] Selection Factors: State:[place] Patient Contact Information Contact Name:ROGELIO Relationship: Address:[address] Work Phone: City:[place] [facility] Phone: [facility]/Zip Code:[place] [address] Email: Financial Information Financial Class: Primary Plan Desc:MEDICARE INPATIENT Primary Plan Number:[id number] Secondary Plan Desc:[employer] [facility] Secondary Plan Number:[id number] Assessment Information Case Management Discharge Plan Note Case Management Discharge Discharge Order Complete? Answers: Yes Patient to Obtain Answers: Other Notes: [facility] Medications Transportation Arranged Answers: Other Notes: [facility] transport arranged by and paid fo r by [facility] Case Management Transport Answers: Yes Form Complete Faxed Final Orders Answers: Yes Agency/Facility Transfer Answers: Yes Report Printed & Faxed to Receiving Agency Family Notified Answers: Yes Notes: in room Discharge Comments Notes: Met w/ pt and 3 daughters and Spiritual Care. Notified [facility] of d/c, able to take pt back, faxed orders. [facility] arranged transport. RN called report. Notified [facility] of d/c and need for meeting at [facility]. Called report and faxed palliative orders. Date Signed: 10/06/2017 03:42 PM Electronically Signed By:Rachele Jennings RN Intervention Information
--- NOTE | 2017-10-07 04:50 | GDS ---
[f rep st] DISCHARGE SUMMARY DISCHARGE DIAGNOSES: 1. Acute hypoxemic respiratory failure. 2. Sinus tachycardia alternating with paroxysmal atrial fibrillation. 3. Traumatic hematuria with chronic Vazquez dependence, patient pulled out his Vazquez. 4. History of recent large left internal carotid artery stroke with subsequent right hemiparesis and dense dysphagia and aphasia. 5. Percutaneous endoscopic gastrostomy tube dependent for feeding, which has been pulled out by the patient. 6. 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 7. Type 2 diabetes. 8. Recent tkn-AO-kiiipumfb myocardial infarction. CONSULTANTS: 1. KEITH Ramirez, neurosurgery. 2. Ana Cooney MD, gastroenterology. 3. Price George MD, neurology. HISTORY: For details, please see the history and physical dated October 05, 2017. In brief, the ignacio lugo is an 82-year-old male, who suffered a large left ICA stroke in August 2017 with subsequent ri ght hemiparesis, dense aphasia and dysphagia, who is now PEG tube dependent for feeds. He was admitt ed to the hospital after falling out of bed and inadvertently removing his Vazquez catheter with subseq uent hematuria. In addition, he recently pulled out his PEG tube. His Vazquez catheter was exchanged in the emergency department, and just prior to transport back to [facility], he developed acute tachy cardia and change in his respiratory status with sudden agitation. He was admitted to the hospital f or further management. HOSPITAL COURSE: The patient admitted to the progressive care unit. He was quite somnolent initiall y after receiving IV Ativan in the emergency department. He was resumed on metoprolol for his tachyc ardia and rapid atrial fibrillation with improvement of his heart rate. He has continued to require 3 L of oxygen. Chest x-ray shows poor inspiratory effort with atelectatic changes. There was no lai dence of acute infection. Neurosurgery consult was requested for consideration of removal of his bradni d cervical spine collar and ultimately he was cleared and able to remove this for comfort. A GI cons ult was also requested as we initially planned to exchange his PEG tube. However, the supplies were not available and were going to take 48-96 hours to arrive. During this time, neurology consult was obtained to review his overall prognosis, which is quite poor after this large unfortunate stroke res ulting in dense aphasia, dysphagia, and hemiparesis. His 3 daughters spent quite a bit of time at e bedside and had conversations with myself, Neurology, Neurosurgery, GI, the palliative care team, a nd Case Management. It became clear to them it was unlikely that he was going to make any kind of me aningful recovery. He did also state during the visit with Neurology that he did not want to have hi s PEG tube replaced and be continued on tube feeds. The family ultimately wished to proceed with [facility] care and palliative care measures. We discussed hospice. They decided they would like him to t ransfer back to [facility] with outpatient palliative care services for comfort care. The Vazquez cath eter that was keeping his PEG tube site open was removed, and they made a firm decision to not have t his replaced and acknowledged that he will likely pass away in the absence of hydration and nutrition . I think it is reasonable to let him have a recreational diet in the realm of reason with liquids i f he chooses for comfort. However, given his aspiration risk, we will discontinue his oral medicatio ns with the exception of oral Roxanol for pain or air hunger. We discussed his duration of life is l ikely in the range of days to weeks. DISPOSITION: The patient is discharged to [facility] for comfort care measures and end of life care. DISCHARGE MEDICATIONS: All his medications were discontinued with the exception of oral Roxanol and further comfort care medications per the palliative care team. /[id number]/MODL
== END 2017-10-06 17:03 | DRG 189 ==
LOC: EDUNIT# → F2W 11:50
PROVIDERS: ADMIT Internal Medicine; ATTEND Hospitalist
DX: J96.01 Acute respiratory failure with hypoxia (principal); I48.0 Paroxysmal atrial fibrillation; R00.0 Tachycardia, unspecified; T83.021A Displacement of indwelling urethral catheter, initial encounter; K94.23 Gastrostomy malfunction; T83.83XA Hemorrhage due to genitourinary prosthetic devices, implants and grafts, initial encounter; L89.150 Pressure ulcer of sacral region, unstageable; L89.810 Pressure ulcer of head, unstageable; I69.320 Aphasia following cerebral infarction; I69.321 Dysphasia following cerebral infarction; I69.351 Hemiplegia and hemiparesis following cerebral infarction affecting right dominant side; E11.9 Type 2 diabetes mellitus without complications; I35.0 Nonrheumatic aortic (valve) stenosis; I10 Essential (primary) hypertension; Z79.4 Long term (current) use of insulin; Z79.01 Long term (current) use of anticoagulants; I25.2 Old myocardial infarction
CPT/HCPCS: 92610-GN; 96374; G8996-GN-CM; G8997-GN-CL; J1815; J2060; Q9967